=== PATIENT | female | born 1940 | race Caucasian/White ===

== ENCOUNTER 2016-07-22 14:16 | Inpatient (IN) | payer MEDICARE, OTHER ==
[~2016-07-22] VITALS: Ht 172.7 cm; Wt 87.2 kg
[2016-07-22] VITALS (17 sets, daily range): BP systolic 123–204; BP diastolic 70–120
--- NOTE | ~2016-07-22 | PR ---
[place], [place] PROGRESS NOTE NAME: ANDREAS COATES UNIT #: [id number] ROOM: 510 DOCTOR: TATIANA SAGASTUMEMATTHEW BIRTHDATE: [birth year] DOS: 07/25/2016 CARDIOLOGY PROGRESS NOTE SUBJECTIVE: The patient was seen at her bedside today 07/25/2016 for followup of a falling episode. She does have a history of paroxysmal atrial fibrillation and possible transient ischemic attacks. There was a concern that her falling episode prior to this admission might have been due to a TIA. The patient did have an MRI this morning, which did not show any acute ischemic events. She does have chronic microvascular changes. PHYSICAL EXAMINATION: VITAL SIGNS: Her pulse is 63 and regular, blood pressure is 137/67. She is afebrile. She weighs 87.2 kg and has a body mass index of 29.2. NECK: Supple. She has no jugular distention. Carotids are full. LUNGS: Respirations are unlabored. Her chest is clear. HEART: Has a regular rhythm with an S4 gallop. ABDOMEN: Benign. EXTREMITIES: Showed no edema on the left. Her right ankle was in a brace. LABORATORY STUDIES: Sodium is 142, potassium 3.8, BUN 16, creatinine 0.72, GFR is greater than 60. Her PTH was elevated at 92.2 with a calcium of 10.7. IMPRESSION: 1. Transient weakness of her right foot. This probably was related to her other medical problems and probably does not represent a transient ischemic attack. She could have had transient hypotension from her atrial fibrillation or a fall in her blood pressure related to an infection. 2. History of paroxysmal atrial fibrillation. The patient is currently in sinus rhythm. 3. Diabetes mellitus. 4. Hypertension. 5. Hyperlipidemia. 6. Status post abdominal aortic aneurysm repair. 7. Elevated calcium with elevated PTH level. The patient may have primary hyperparathyroidism. PLAN: We will review the results of her echocardiogram once it is available. If that looks okay, then no other cardiac workup is planned. I would like to keep her on a low dose of beta gillian. Further evaluation of her hyperparathyroidism will be per her primary physicians. I thank the hospitalist group for asking our advice regarding her care. [place], [place] PROGRESS NOTE NAME: ANDREAS COATES UNIT #: [id number] ROOM: 510 DOCTOR: MATTHEW SIMPSON MD BIRTHDATE: [birth year] MATTHEW SIMPSON MD CM:PNTRANS [phone] MATTHEW SIMPSON MD 07/26/16 0142 interface
--- NOTE | ~2016-07-22 | CON ---
[place], [place] REPORT OF CONSULTATION NAME: ANDREAS COATES UNIT #: [id number] ROOM: 510 DOCTOR: MATTHEW SIMPSON MD BIRTHDATE: [birth year] DOS: 07/24/2016 REASON FOR CONSULTATION: Transient right-sided weakness, history of atrial fibrillation, possible TIA. HISTORY OF PRESENT ILLNESS: The patient is a 76-year-old woman who is known to have paroxysmal atrial fibrillation. She was first documented to have atrial fibrillation in 04/2014. She was placed on Xarelto at that time for stroke prophylaxis. She had had a prior history of transient ischemic attack, but no residual. She does admit that because of insurance concerns for a few months, she was taking the Xarelto every few days rather than daily. She states that around June, she got insurance coverage for her prescriptions and began taking the pill daily, so she has been taking it daily for about 3 or 4 weeks. On the day of admission, 07/22/2016, she was feeling somewhat weak when she first got up, but then felt better. She took her trash out. She states that she has to walk down one step to a porch and then down three steps to the ground level to bring the trash out. She had no trouble with that. On the way back, she was able to walk up to three steps without difficulty, but when she came to the step into her house, she could not raise her right leg. She lost balance and fell easing herself to the ground. She did not injure herself to her knowledge. She crawled to her neighbor's home and was assisted back into a chair. The emergency medical services were called. By the time they arrived, she stated that she was feeling normally again, but just generally tired. She has not had any focal weakness since her admission. A CT scan of the head since admission was unremarkable. CT of the cervical spine showed no acute fracture or malalignment. CT of the abdomen and pelvis was also unremarkable. On arrival to the Emergency Room, she was in atrial fibrillation with a rapid ventricular response, but she did convert to sinus rhythm quickly and has remained in sinus rhythm since then. PAST MEDICAL HISTORY: Includes: 1. Newly documented atrial fibrillation on 05/06/2014. 2. Non-insulin dependent diabetes mellitus. 3. Remote history of transient ischemic attack. 4. Status post repair of abdominal aortic aneurysm. 5. Hypertension. 6. Hyperlipidemia. 7. Status post cholecystectomy. 8. Status post heel spur repair. MEDICATIONS: Prior to admission, fish oil 1000 mg daily, metformin 1000 mg b.i.d., Univasc 15 mg daily, rivaroxaban 20 mg daily, vitamin D 2000 units daily and rosuvastatin 40 mg daily. ALLERGIES: The patient has no known drug allergies. [place], [place] REPORT OF CONSULTATION NAME: ANDREAS COATES UNIT #: [id number] ROOM: [facility] DOCTOR: MATTHEW SIMPSON MD BIRTHDATE: [birth year] FAMILY HISTORY: Positive for strokes in her family. Her father of a stroke and complications of the stroke at age 59. Her mother had strokes at age 60 and 61. REVIEW OF SYSTEMS: The patient denies diplopia or loss of vision. She does walk with a walker, but denies any focal weakness until yesterday morning. She denies fevers, chills, sweats or recent weight change. She denies orthopnea or PND. She denies any chest pain and she cannot tell when her heart is out of rhythm. She denies nausea or vomiting. She denies hemoptysis or hematemesis. She denies any anorexia or recent weight change. She denies change in bowel or bladder habits and denies blood in her stools or urine. She denies any heat or cold intolerance. She denies polydipsia or polyuria. She denies any left ankle swelling. Her right ankle was injured years ago and she did have all right ankle open reduction and internal fixation. The right ankle does her now and she walks with a brace. SOCIAL HISTORY: The patient lives alone. She does not smoke or consume alcohol. She was a smoker in the distant past. PHYSICAL EXAMINATION: GENERAL: The patient is a pleasant elderly white female who is awake, alert and oriented. VITAL SIGNS: Pulse is 63 and regular, blood pressure is 132/70. She is afebrile. She weighs 87.2 kg and has a body mass index of 29.2. HEENT: Normocephalic and atraumatic. Extraocular muscles are intact. Sclerae are clear. Pupils are equal, round and reactive to light. The oral mucosa is moist. Tongue is midline. NECK: Supple. She has no jugular distention. Carotids are full and I heard no bruits. She had no neck or supraclavicular masses. No thyromegaly. Respirations were unlabored. CHEST: Clear to auscultation and percussion. She had no presacral edema or chest wall tenderness. CARDIOVASCULAR: Her heart had a regular rhythm. She had a fourth heart sound, but no third heart sound or murmur. The PMI was not displaced. She had no precordial heave, lift or thrill. ABDOMEN: Soft and normally active without masses, organomegaly or bruits. EXTREMITIES: Showed no edema on the left. Her right ankle was slightly swollen and warm. Pedal pulses were diminished in the feet bilaterally. SKIN: There were no obvious skin rashes. IMPRESSION AND RECOMMENDATIONS: 1. Transient weakness of the right foot. It is not clear whether this could have represented a transient hypotension from her paroxysmal atrial fibrillation or could represent a transient ischemic attack from the atrial fibrillation. Unfortunately, that would indicate a failure of the rivaroxaban can to prevent strokes in her situation. 2. History of paroxysmal atrial fibrillation. 3. History of diabetes mellitus. 4. History of hypertension. [place], [place] REPORT OF CONSULTATION NAME: ANDREAS COATES UNIT #: [id number] ROOM: 510 DOCTOR: MATTHEW SIMPSON MD BIRTHDATE: [birth year] 5. History of hyperlipidemia. 6. History of abdominal aortic aneurysm repair. PLAN: For now, we will continue her current medications, but I will ask her to increase her metoprolol to help prevent tachycardia. We will continue to monitor her to make sure that she is not having prolonged pauses when she converts from sinus rhythm to atrial fibrillation. I will be asking for an MRI of the brain to see if there is evidence for small brain injuries such as would be seen with cerebral embolic events. I understand she has had an echo and I will review that to look for cardiac sources of emboli. I thank the hospitalist group for asking our advice regarding her care. MATTHEW SIMPSON MD CM:CONSTR:REPORT OF CONSULTATION 1756 07/24/16 1626 interface
--- NOTE | ~2016-07-22 | PR ---
[place], [place] PROGRESS NOTE NAME: ANDREAS COATES [facility] #: [id number] UNIT #: [id number] ROOM: 510 DOCTOR: MATTHEW SIMPSON MD BIRTHDATE: [birth year] DOS: 07/24/2016 SUBJECTIVE: The patient was seen at her bedside today 07/24/2016 for followup of her paroxysmal atrial fibrillation and possible transient ischemic attack. She tells me that she has had no further symptoms since her admission. I reviewed her monitor, she did convert from atrial fibrillation with a controlled ventricular response to sinus rhythm shortly after admission. There was no prolonged pause seen. She has not had any further episodes of atrial fibrillation since then. I did ask for an MRI of her brain and that is still pending. At this point, I am not clear if the event that she had truly was a transient ischemic attack or related to an arrhythmia. PHYSICAL EXAMINATION: VITAL SIGNS: On exam today, she is awake, alert and oriented. VITAL SIGNS: Pulse is 54 and regular, blood pressure is 117/68. She is afebrile and weighs 87.2 kg. NECK: Supple. She has no jugular distention. Carotids are full. She has no bruits. LUNGS: Respirations are unlabored. Her chest is clear to auscultation and percussion. She has no presacral edema or chest wall tenderness. HEART: Has a regular rhythm. There is a fourth heart sound present, but no third heart sound or murmur. ABDOMEN: Soft and normoactive. EXTREMITIES: Showed no edema on the left. Her right ankle is slightly swollen. LABORATORY DATA: Hemoglobin is 11.6, white count 5000, platelet count 260,000. Sodium 140, potassium 3.7, BUN 16, creatinine 0.68, glucose 146. Calcium is slightly high at 11 and has been high since her admission. IMPRESSION: 1. Transient weakness of her right foot. It is not clear whether this represented a transient hypotensive episode from her arrhythmia or if it could represent a transient ischemic attack from a cardioembolic phenomenon. 2. History of paroxysmal atrial fibrillation. 3. Diabetes mellitus. 4. Hypertension. 5. Hyperlipidemia. 6. Abdominal aortic aneurysm repair. PLAN: We will continue to monitor the patient. She will have an MRI of her brain in the morning. An echocardiogram will also be performed. Further recommendations will depend upon those results. I thank the hospitalist group for asking our advice regarding her care. [place], [place] PROGRESS NOTE NAME: ANDREAS COATES UNIT #: [id number] ROOM: 510 DOCTOR: TATIANA SAGASTUME,MATTHEW BIRTHDATE: [birth year] MATTHEW SIMPSON MD CM:PNTRANS [id number] MATTHEW SIMPSON MD 07/25/16 1301 interface
[~2016-07-22 14:16] MED LIST: ASPIRIN ADULT L81 M1 PO; AVANDAMET PO; AVELOX400 MG PO; CARDI-OMEGA1000 MG PO; CLOPIDOGREL BIS75 MG PO; CRESTOR40 MG; FLOMAX0.4 MG PO; GLIMEPIRIDE2 MG PO; GLUCOPHAGE1000 MG PO; Lopressor25 MG PO; METFORMIN500 MG PO; MORPHINE SULF2 MG/M1 IV; MUCINEX600 MG PO; PLAVIX75 MG PO; SMZ-TMP 400 MG-1 TAB PO; UNIVASC15 MG PO; VITAMIN D2000 IU PO; XARE20MG PO; XARELTO10 MG PO; [UNRECOGNIZED DRUG - OTHER]; [UNRECOGNIZED DRUG - OTHER] PO
[2016-07-22 15:07] LABS: BASO % 0.5 % (0.0-1.0); EOS # 0.1 10*3/uL (0.0-0.4); EOS % 1.3 % (1.0-4.0); HEMATOCRIT 39.2 % (37.0-47.0); HEMOGLOBIN 12.3 g/dl (12.0-16.0); LYMPH % 12.7 % (27.0-41.0); MEAN CELL VOLUME 95.8 fl (81.0-99.0); MEAN CORPUSCULAR HGB 30.1 pg (27.0-31.0); MEAN CORPUSCULAR HGB CONC 31.4 g/dl (33.0-37.0); MEAN PLATELET VOLUME 10.1 fl (9.6-12.3); MONO # 0.6 10*3/uL (0.1-1.0); MONO % 8.3 % (3.0-9.0); NEUT # 5.8 10*3/uL (2.3-7.9); NEUT % 76.9 % (47.0-73.0); PLATELET COUNT AUTOMATED 279 10*3/uL (130-400); RED BLOOD COUNT 4.09 10*6/uL (4.10-5.10); RED CELL DISTRI WIDTH 15.5 % (0-14.5); WHITE BLOOD COUNT 7.5 10*3/uL (4.8-10.8)
[2016-07-22 15:29] LABS: ALBUMIN 3.7 gm/dl (3.1-4.5); ALKALINE PHOSPHATASE 136 U/L (45-117); BILIRUBIN, TOTAL 0.5 mg/dl (0.2-1.0); BUN 17 mg/dl (7-24); CARBON DIOXIDE 27 mmol/L (21-32); CHLORIDE 104 mmol/L (98-107); EST GLOM FILT AFRICAN AMERICAN > 60 ml/min; GLUCOSE 138 mg/dL (65-99); POTASSIUM 4.2 mmol/L (3.5-5.1); SGOT/AST 20 IU/L (3-35); SGPT/ALT 20 U/L (12-78); SODIUM 139 mmol/L (136-145); TOTAL PROTEIN 8.9 gm/dL (6.4-8.2)
[2016-07-22 15:36] LABS: BILIRUBIN NEGATIVE (NEGATIVE); BLOOD TRACE-INTACT (NEGATIVE); CLARITY CLEAR (CLEAR); COLOR YELLOW (YELLOW); GLUCOSE NEGATIVE (NEGATIVE); KETONE NEGATIVE (NEGATIVE); LEUKO ESTERASE NEGATIVE (NEGATIVE); NITRITE NEGATIVE (NEGATIVE); PROTEIN 1+ (NEGATIVE); UROBILINOGEN 0.2 E.U./dl (0.2-1.0)
[2016-07-22 16:07] LABS: BACTERIA 2+; RBC 0-2 rbc/hpf (0-2)
[2016-07-22 16:08] LABS: URINE REFLEX COMMENT YES (NO)
[2016-07-23] VITALS: BP 128/65
[2016-07-23 00:53] LABS: TROPONIN I 0.028 ng/ml (<0.5)
[2016-07-23 00:57] LABS: CKMB 5.8 ng/ml (0.5-3.6)
[2016-07-23 06:20] LABS: BASO # 0.1 10*3/uL (0.0-0.1); BASO % 0.9 % (0.0-1.0); EOS # 0.2 10*3/uL (0.0-0.4); EOS % 2.6 % (1.0-4.0); HEMATOCRIT 39.8 % (37.0-47.0); HEMOGLOBIN 12.7 g/dl (12.0-16.0); LYMPH # 1.2 10*3/uL (1.3-4.4); LYMPH % 20.7 % (27.0-41.0); MEAN CELL VOLUME 94.5 fl (81.0-99.0); MEAN CORPUSCULAR HGB 30.2 pg (27.0-31.0); MEAN CORPUSCULAR HGB CONC 31.9 g/dl (33.0-37.0); MEAN PLATELET VOLUME 10.1 fl (9.6-12.3); MONO # 0.6 10*3/uL (0.1-1.0); MONO % 9.5 % (3.0-9.0); NEUT # 3.8 10*3/uL (2.3-7.9); PLATELET COUNT AUTOMATED 292 10*3/uL (130-400); RED BLOOD COUNT 4.21 10*6/uL (4.10-5.10); RED CELL DISTRI WIDTH 15.6 % (0-14.5); WHITE BLOOD COUNT 5.8 10*3/uL (4.8-10.8)
[2016-07-23 06:29] LABS: TROPONIN I 0.017 ng/ml (<0.5)
[2016-07-23 06:31] LABS: CKMB 5.4 ng/ml (0.5-3.6)
[2016-07-23 06:33] LABS: HEMOGLOBIN A1c 7.3 % (4.8-5.6)
[2016-07-23 06:45] LABS: PROTHROMBIN TIME 10.3 SECONDS (9.0-12.4)
[2016-07-23 06:56] LABS: ALBUMIN 3.4 gm/dl (3.1-4.5); ALKALINE PHOSPHATASE 127 U/L (45-117); BILIRUBIN, TOTAL 0.5 mg/dl (0.2-1.0); BUN 15 mg/dl (7-24); CARBON DIOXIDE 27 mmol/L (21-32); CHLORIDE 107 mmol/L (98-107); CHOLESTEROL 139 mg/dL (<200); EST GLOM FILT AFRICAN AMERICAN > 60 ml/min; GLUCOSE 134 mg/dL (65-99); HDL CHOLESTEROL 46 mg/dl (40-60); LDL CHOLESTEROL 72 mg/dL (9-159); PHOSPHOROUS 2.1 mg/dL (2.5-4.9); POTASSIUM 3.7 mmol/L (3.5-5.1); SGOT/AST 18 IU/L (3-35); SGPT/ALT 19 U/L (12-78); SODIUM 142 mmol/L (136-145); TOTAL PROTEIN 8.6 gm/dL (6.4-8.2); TRIGLYCERIDES 103 mg/dl (<150); VLDL CHOLESTEROL 21 mg/dL (6-40)
[2016-07-23 07:19] LABS: VITAMIN D, 25-HYDROXY 24.3 ng/mL (30-100)
[2016-07-23 07:20] LABS: FOLIC ACID 11.56 ng/mL (>5.38)
[2016-07-23 08:00] VITALS: BP 144/70
[2016-07-23 12:00] VITALS: BP 132/60
[2016-07-23 12:13] LABS: CPK 134 U/L (26-192)
[2016-07-23 12:23] LABS: TROPONIN I < 0.015 ng/ml (<0.5)
[2016-07-23 16:00] VITALS: BP 132/70
[2016-07-23 20:00] VITALS: BP 137/74
[2016-07-24] VITALS: BP 138/74
[2016-07-24 06:27] LABS: BASO # 0.1 10*3/uL (0.0-0.1); EOS # 0.3 10*3/uL (0.0-0.4); EOS % 5.4 % (1.0-4.0); HEMATOCRIT 36.4 % (37.0-47.0); HEMOGLOBIN 11.6 g/dl (12.0-16.0); LYMPH # 0.9 10*3/uL (1.3-4.4); LYMPH % 18.1 % (27.0-41.0); MEAN CELL VOLUME 94.8 fl (81.0-99.0); MEAN CORPUSCULAR HGB 30.2 pg (27.0-31.0); MEAN CORPUSCULAR HGB CONC 31.9 g/dl (33.0-37.0); MONO # 0.5 10*3/uL (0.1-1.0); MONO % 10.5 % (3.0-9.0); NEUT # 3.3 10*3/uL (2.3-7.9); NEUT % 64.6 % (47.0-73.0); PLATELET COUNT AUTOMATED 260 10*3/uL (130-400); RED BLOOD COUNT 3.84 10*6/uL (4.10-5.10); RED CELL DISTRI WIDTH 15.6 % (0-14.5)
[2016-07-24 07:10] LABS: BUN 16 mg/dl (7-24); CARBON DIOXIDE 26 mmol/L (21-32); CHLORIDE 105 mmol/L (98-107); EST GLOM FILT AFRICAN AMERICAN > 60 ml/min; GLUCOSE 146 mg/dL (65-99); MAGNESIUM 2.1 mg/dL (1.5-2.1); PHOSPHOROUS 2.7 mg/dL (2.5-4.9); POTASSIUM 3.7 mmol/L (3.5-5.1); SODIUM 140 mmol/L (136-145)
[2016-07-24 08:00] VITALS: BP 136/51
[2016-07-24 12:00] VITALS: BP 124/66
[2016-07-24 16:00] VITALS: BP 117/68
[2016-07-24 20:00] VITALS: BP 113/60
[2016-07-25] VITALS: BP 126/61
[2016-07-25 06:39] LABS: BUN 16 mg/dl (7-24); CARBON DIOXIDE 27 mmol/L (21-32); CHLORIDE 106 mmol/L (98-107); EST GLOM FILT AFRICAN AMERICAN > 60 ml/min; GLUCOSE 139 mg/dL (65-99); POTASSIUM 3.8 mmol/L (3.5-5.1); SODIUM 142 mmol/L (136-145)
[2016-07-25 08:00] VITALS: BP 137/67
[2016-07-25 12:00] VITALS: BP 156/72
[2016-07-25 16:00] VITALS: BP 115/53
[2016-07-25] MEDS ORDERED: LOPRESSOR25 MG PO (19:39)
[2016-07-25 20:00] VITALS: BP 115/55
[2016-07-26] VITALS: BP 149/73
[2016-07-26 08:00] VITALS: BP 134/70
[2016-07-26] MEDS ORDERED: LOPRESSOR25 MG PO (10:48)
[2016-07-26 12:00] VITALS: BP 145/77
== END 2016-07-26 14:55 | disposition home health service (06) | DRG 309 ==
LOC: ED 14:16 → 5E 17:51 → EDHOLD 17:51 → 5E 18:33
PROVIDERS: Internal Medicine; Nurse Practitioner Family
DX: I48.0 Paroxysmal atrial fibrillation (principal); N39.0 Urinary tract infection, site not specified; I95.9 Hypotension, unspecified; E11.9 Type 2 diabetes mellitus without complications; I10 Essential (primary) hypertension; R74.8 Abnormal levels of other serum enzymes; R29.6 Repeated falls; E21.0 Primary hyperparathyroidism; E78.5 Hyperlipidemia, unspecified; Z96.1 Presence of intraocular lens; Z68.29 Body mass index [BMI] 29.0-29.9, adult; Z86.73 Personal history of transient ischemic attack (TIA), and cerebral infarction without residual deficits; Z90.49 Acquired absence of other specified parts of digestive tract; Z98.49 Cataract extraction status, unspecified eye; Z98.890 Other specified postprocedural states; Z87.891 Personal history of nicotine dependence; Z82.3 Family history of stroke; Z82.49 Family history of ischemic heart disease and other diseases of the circulatory system; Z83.3 Family history of diabetes mellitus; Z79.899 Other long term (current) drug therapy; Z87.440 Personal history of urinary (tract) infections; Z87.442 Personal history of urinary calculi

== ENCOUNTER 2016-09-15 12:07 | Inpatient (IN) | payer MEDICARE, OTHER ==
[~2016-09-15] VITALS: Ht 170.1 cm; Wt 79.4 kg
[~2016-09-15 12:07] MED LIST changes: +LOPRESSOR25 MG PO
[2016-09-15] MEDS ORDERED: OXYBUTYNIN CHLOR5 MG PO (12:20)
[2016-09-15] MEDS ORDERED: HYDROCODONE BIT1 T11 PO (12:20)
[2016-09-15] MEDS ORDERED: Lopressor25 MG PO (12:21)
[2016-09-15] MEDS ORDERED: METFORMIN1000 MG PO ×2 (12:23→16:55)
[2016-09-15 13:08] LABS: BASO % 0.4 % (0.0-1.0); EOS # 0.1 10*3/uL (0.0-0.4); EOS % 0.6 % (1.0-4.0); HEMATOCRIT 36.3 % (37.0-47.0); HEMOGLOBIN 11.7 g/dl (12.0-16.0); LYMPH # 0.7 10*3/uL (1.3-4.4); LYMPH % 8.8 % (27.0-41.0); MEAN CELL VOLUME 95.3 fl (81.0-99.0); MEAN CORPUSCULAR HGB 30.7 pg (27.0-31.0); MEAN CORPUSCULAR HGB CONC 32.2 g/dl (33.0-37.0); MEAN PLATELET VOLUME 10.3 fl (9.6-12.3); MONO # 0.6 10*3/uL (0.1-1.0); MONO % 7.3 % (3.0-9.0); NEUT # 6.5 10*3/uL (2.3-7.9); NEUT % 82.6 % (47.0-73.0); PLATELET COUNT AUTOMATED 267 10*3/uL (130-400); RED BLOOD COUNT 3.81 10*6/uL (4.10-5.10); RED CELL DISTRI WIDTH 14.1 % (0-14.5); WHITE BLOOD COUNT 7.8 10*3/uL (4.8-10.8)
[2016-09-15 13:26] LABS: ALBUMIN 3.2 gm/dl (3.1-4.5); ALKALINE PHOSPHATASE 111 U/L (45-117); BUN 12 mg/dl (7-24); CARBON DIOXIDE 26 mmol/L (21-32); CHLORIDE 104 mmol/L (98-107); CPK 134 U/L (26-192); EST GLOM FILT AFRICAN AMERICAN > 60 ml/min; GLUCOSE 142 mg/dL (65-99); MAGNESIUM 1.9 mg/dL (1.5-2.1); POTASSIUM 3.6 mmol/L (3.5-5.1); SGOT/AST 18 IU/L (3-35); SGPT/ALT 15 U/L (12-78); SODIUM 141 mmol/L (136-145); TOTAL PROTEIN 7.8 gm/dL (6.4-8.2)
[2016-09-15 13:30] LABS: BILIRUBIN, TOTAL 0.3 mg/dl (0.2-1.0)
[2016-09-15 13:35] LABS: TROPONIN I < 0.015 ng/ml (<0.045)
[2016-09-15 13:37] LABS: CKMB 5.1 ng/ml (0.5-3.6)
[2016-09-15 13:39] LABS: BILIRUBIN NEGATIVE (NEGATIVE); BLOOD 2+ (NEGATIVE); CLARITY CLOUDY (CLEAR); COLOR YELLOW (YELLOW); GLUCOSE NEGATIVE (NEGATIVE); KETONE NEGATIVE (NEGATIVE); LEUKO ESTERASE 3+ (NEGATIVE); NITRITE POSITIVE (NEGATIVE); PROTEIN 1+ (NEGATIVE); UROBILINOGEN 0.2 E.U./dl (0.2-1.0)
[2016-09-15 13:55] LABS: BACTERIA 4+; URINE REFLEX COMMENT YES (NO); WBC TNTC wbc/hpf (0-5)
[2016-09-15] MEDS ORDERED: METFORMIN500 MG PO (16:56)
[2016-09-16 05:52] LABS: BASO % 0.5 % (0.0-1.0); EOS # 0.2 10*3/uL (0.0-0.4); EOS % 3.2 % (1.0-4.0); HEMATOCRIT 34.3 % (37.0-47.0); HEMOGLOBIN 10.8 g/dl (12.0-16.0); LYMPH % 16.6 % (27.0-41.0); MEAN CELL VOLUME 96.9 fl (81.0-99.0); MEAN CORPUSCULAR HGB 30.5 pg (27.0-31.0); MEAN CORPUSCULAR HGB CONC 31.5 g/dl (33.0-37.0); MEAN PLATELET VOLUME 10.7 fl (9.6-12.3); MONO # 0.6 10*3/uL (0.1-1.0); MONO % 10.7 % (3.0-9.0); NEUT # 4.1 10*3/uL (2.3-7.9); NEUT % 68.5 % (47.0-73.0); PLATELET COUNT AUTOMATED 236 10*3/uL (130-400); RED BLOOD COUNT 3.54 10*6/uL (4.10-5.10)
[2016-09-16 06:15] LABS: ALBUMIN 2.8 gm/dl (3.1-4.5); ALKALINE PHOSPHATASE 97 U/L (45-117); BILIRUBIN, TOTAL 0.2 mg/dl (0.2-1.0); BUN 11 mg/dl (7-24); CARBON DIOXIDE 25 mmol/L (21-32); CHLORIDE 108 mmol/L (98-107); EST GLOM FILT AFRICAN AMERICAN > 60 ml/min; GLUCOSE 92 mg/dL (65-99); MAGNESIUM 1.7 mg/dL (1.5-2.1); PHOSPHOROUS 1.9 mg/dL (2.5-4.9); POTASSIUM 3.4 mmol/L (3.5-5.1); SGOT/AST 19 IU/L (3-35); SGPT/ALT 13 U/L (12-78); SODIUM 145 mmol/L (136-145); TOTAL PROTEIN 6.9 gm/dL (6.4-8.2)
[2016-09-16 06:17] LABS: INTERNATIONAL NORM RATIO 1.1 (2.0-3.5); PROTHROMBIN TIME 11.6 SECONDS (9.0-12.4)
[2016-09-16 06:22] LABS: THYROID STIM HORMONE (HS) 0.966 uIU/ml (0.358-4.75)
[2016-09-16 08:13] LABS: RHEUMATOID ARTHRITIS FACTOR 166.6 IU/mL (0.0-13.9)
[2016-09-18] MEDS ORDERED: HYDROCODONE BIT1 T11 PO (14:00)
[2016-09-18] MEDS ORDERED: DOXYCYCLINE100 MG PO (14:00)
[2016-09-18] MEDS ORDERED: ACETAMINOPHEN-H1 TA2 PO (14:01)
[2016-09-18] MEDS ORDERED: PREDNISONE50 MG PO (14:11)
[2016-09-20 13:06] LABS: ANTI-RNP ANTIBODIES <0.2 AI (0.0-0.9); ANTI-SMITH ANTIBODIES 0.5 AI (0.0-0.9)
== END 2016-09-18 15:20 | disposition other institution (70) | DRG 546 ==
LOC: ED 12:07 → EDHOLD 14:22 → 5E 14:22
PROVIDERS: Family Medicine Adult Medicine; Internal Medicine; Student in an Organized Health Care Education/Training Program
DX: M32.9 Systemic lupus erythematosus, unspecified (principal); N39.0 Urinary tract infection, site not specified; I48.91 Unspecified atrial fibrillation; E11.9 Type 2 diabetes mellitus without complications; E86.0 Dehydration; E78.5 Hyperlipidemia, unspecified; I10 Essential (primary) hypertension; E21.0 Primary hyperparathyroidism; M25.50 Pain in unspecified joint; Z79.01 Long term (current) use of anticoagulants; Z79.899 Other long term (current) drug therapy; Z86.73 Personal history of transient ischemic attack (TIA), and cerebral infarction without residual deficits; Z90.49 Acquired absence of other specified parts of digestive tract; Z87.81 Personal history of (healed) traumatic fracture; Z87.891 Personal history of nicotine dependence; Z82.3 Family history of stroke; Z82.49 Family history of ischemic heart disease and other diseases of the circulatory system; Z80.8 Family history of malignant neoplasm of other organs or systems

== ENCOUNTER 2016-12-12 16:45 | Emergency (ER) | payer MEDICARE, OTHER ==
[~2016-12-12] VITALS: Ht 170.1 cm; Wt 84.8 kg
[~2016-12-12 16:45] MED LIST changes: +ACETAMINOPHEN-H1 TA2 PO; +DOXYCYCLINE100 MG PO; +HYDROCODONE BIT1 T11 PO; +METFORMIN1000 MG PO; +OXYBUTYNIN CHLOR5 MG PO; +PREDNISONE50 MG PO
[2016-12-12] MEDS ORDERED: METFORMIN HCL1000 MG PO (16:59)
[2016-12-12] MEDS ORDERED: XARE20MG PO (16:59)
[2016-12-12] MEDS ORDERED: POTASSIUM PHOSPH1 GM MC (17:00)
[2016-12-12] MEDS ORDERED: PREDNISONE10 M1 PO (17:01)
[2016-12-12] MEDS ORDERED: VITAMIN D31000 IU PO (17:01)
[2016-12-12] MEDS ORDERED: CRESTOR40 M1 PO (17:02)
[2016-12-12] MEDS ORDERED: OXYBUTYNIN5 MG PO (17:02)
[2016-12-12] MEDS ORDERED: FISH OIL500 M2 PO (17:02)
[2016-12-12] MEDS ORDERED: TOPROL XL50 M1 PO (17:03)
[2016-12-12] MEDS ORDERED: HYDROCODON-ACE1 EACH PO (17:03)
[2016-12-12 17:26] LABS: HEMATOCRIT 34.1 % (37.0-47.0); HEMOGLOBIN 10.8 g/dl (12.0-16.0); MEAN CELL VOLUME 98.8 fl (81.0-99.0); MEAN CORPUSCULAR HGB 31.3 pg (27.0-31.0); MEAN CORPUSCULAR HGB CONC 31.7 g/dl (33.0-37.0); MEAN PLATELET VOLUME 10.3 fl (9.6-12.3); PLATELET COUNT AUTOMATED 230 10*3/uL (130-400); RED BLOOD COUNT 3.45 10*6/uL (4.10-5.10); RED CELL DISTRI WIDTH 15.4 % (0-14.5); WHITE BLOOD COUNT 10.1 10*3/uL (4.8-10.8)
[2016-12-12 17:39] LABS: INTERNATIONAL NORM RATIO 1.4 (2.0-3.5); PROTHROMBIN TIME 14.7 SECONDS (9.0-12.4)
[2016-12-12 17:41] LABS: ALBUMIN 3.1 gm/dl (3.1-4.5); ALKALINE PHOSPHATASE 84 U/L (45-117); BILIRUBIN, TOTAL 0.4 mg/dl (0.2-1.0); BUN 19 mg/dl (7-24); CARBON DIOXIDE 27 mmol/L (21-32); CHLORIDE 108 mmol/L (98-107); EST GLOM FILT AFRICAN AMERICAN > 60 ml/min; GLUCOSE 180 mg/dL (65-99); POTASSIUM 3.9 mmol/L (3.5-5.1); SGOT/AST 16 IU/L (3-35); SGPT/ALT 11 U/L (12-78); SODIUM 143 mmol/L (136-145); TOTAL PROTEIN 7.3 gm/dL (6.4-8.2)
[2016-12-12 17:45] LABS: EOSINOPHIL # 0.1 10*3/uL (0-0.4); EOSINOPHILS 1 % (1-4); LYMPHOCYTE # 0.7 10*3/uL (1.3-4.4); MONOCYTE # 0.3 10*3/uL (0.1-1.0); NEUTROPHILS 89 % (47-73); PLATELET SUFFICIENCY NORMAL (NORMAL); TOTAL CELLS COUNTED 100 #CELLS
[2016-12-12 18:20] VITALS: BP 105/55
== END 2016-12-12 19:05 | disposition home or self-care (01) ==
LOC: ED 16:45
PROVIDERS: Nurse Practitioner Family
DX: S16.1XXA Strain of muscle, fascia and tendon at neck level, initial encounter (principal); E78.5 Hyperlipidemia, unspecified; I10 Essential (primary) hypertension; I48.91 Unspecified atrial fibrillation; Z90.49 Acquired absence of other specified parts of digestive tract; I71.4 Abdominal aortic aneurysm, without rupture; Z87.891 Personal history of nicotine dependence; W18.30XA Fall on same level, unspecified, initial encounter; Y93.01 Activity, walking, marching and hiking; Y92.009 Unspecified place in unspecified non-institutional (private) residence as the place of occurrence of the external cause; Y99.9 Unspecified external cause status

== ENCOUNTER 2016-12-20 15:00 | Inpatient (IN) | payer MEDICARE, OTHER ==
[~2016-12-20] VITALS: Ht 170.2 cm; Wt 84.4 kg
[2016-12-20 15:00] VITALS: BP 143/70
[~2016-12-20 15:00] MED LIST changes: +CRESTOR40 M1 PO; +FISH OIL500 M2 PO; +HYDROCODON-ACE1 EACH PO; +METFORMIN HCL1000 MG PO; +OXYBUTYNIN5 MG PO; +POTASSIUM PHOSPH1 GM MC; +PREDNISONE10 M1 PO; +TOPROL XL50 M1 PO; +VITAMIN D31000 IU PO
[2016-12-20 15:55] LABS: HEMATOCRIT 44.4 % (37.0-47.0); HEMOGLOBIN 14.2 g/dl (12.0-16.0); MEAN CELL VOLUME 97.2 fl (81.0-99.0); MEAN CORPUSCULAR HGB 31.1 pg (27.0-31.0); MEAN PLATELET VOLUME 9.9 fl (9.6-12.3); PLATELET COUNT AUTOMATED 318 10*3/uL (130-400); RED BLOOD COUNT 4.57 10*6/uL (4.10-5.10); RED CELL DISTRI WIDTH 14.8 % (0-14.5); WHITE BLOOD COUNT 19.7 10*3/uL (4.8-10.8)
[2016-12-20 16:00] VITALS: BP 146/70
[2016-12-20 16:05] LABS: INTERNATIONAL NORM RATIO 1.1 (2.0-3.5); PROTHROMBIN TIME 11.4 SECONDS (9.0-12.4)
[2016-12-20 16:16] LABS: ALBUMIN 3.3 gm/dl (3.1-4.5); ALKALINE PHOSPHATASE 111 U/L (45-117); BILIRUBIN, TOTAL 0.7 mg/dl (0.2-1.0); BUN 16 mg/dl (7-24); CARBON DIOXIDE 24 mmol/L (21-32); CHLORIDE 104 mmol/L (98-107); EST GLOM FILT AFRICAN AMERICAN > 60 ml/min; GLUCOSE 320 mg/dL (65-99); POTASSIUM 3.6 mmol/L (3.5-5.1); SGOT/AST 65 IU/L (3-35); SGPT/ALT 32 U/L (12-78); SODIUM 142 mmol/L (136-145); TOTAL PROTEIN 8.4 gm/dL (6.4-8.2)
[2016-12-20 16:18] LABS: LYMPHOCYTE # 0.4 10*3/uL (1.3-4.4); MONOCYTE # 0.8 10*3/uL (0.1-1.0); NEUTROPHIL # 18.5 10*3/uL (2.3-7.9); NEUTROPHILS 94 % (47-73); PLATELET SUFFICIENCY NORMAL (NORMAL); TOTAL CELLS COUNTED 100 #CELLS
[2016-12-20 16:23] LABS: CKMB 19.3 ng/ml (0.5-3.6); TROPONIN I 0.173 ng/ml (<0.045)
[2016-12-20 16:40] LABS: CPK 1383 U/L (26-192)
[2016-12-20 17:00] VITALS: BP 148/80
[2016-12-20 17:50] LABS: LA>2 REFLEX 2 HR DRAW NOW
[2016-12-20 18:15] VITALS: BP 148/86
[2016-12-20 19:41] VITALS: BP 162/81
[2016-12-20 20:00] VITALS: BP 144/96
[2016-12-20 21:47] LABS: BILIRUBIN NEGATIVE (NEGATIVE); BLOOD 3+ (NEGATIVE); CLARITY CLEAR (CLEAR); COLOR YELLOW (YELLOW); GLUCOSE 2+ (NEGATIVE); KETONE 1+ (NEGATIVE); LEUKO ESTERASE NEGATIVE (NEGATIVE); NITRITE POSITIVE (NEGATIVE); PH 5.5 (5.0-9.0); PROTEIN 2+ (NEGATIVE); SPECIFIC GRAVITY >= 1.030 (1.005-1.030)
[2016-12-20 22:34] LABS: BACTERIA 2+
[2016-12-20 22:35] LABS: URINE REFLEX COMMENT YES (NO)
[2016-12-21] VITALS: BP 137/72
[2016-12-21 06:08] LABS: ALBUMIN 2.6 gm/dl (3.1-4.5); ALKALINE PHOSPHATASE 86 U/L (45-117); BILIRUBIN, TOTAL 0.5 mg/dl (0.2-1.0); BUN 18 mg/dl (7-24); CARBON DIOXIDE 27 mmol/L (21-32); CHLORIDE 107 mmol/L (98-107); EST GLOM FILT AFRICAN AMERICAN > 60 ml/min; GLUCOSE 204 mg/dL (65-99); MAGNESIUM 1.9 mg/dL (1.5-2.1); PHOSPHOROUS 1.8 mg/dL (2.5-4.9); POTASSIUM 3.5 mmol/L (3.5-5.1); SGOT/AST 47 IU/L (3-35); SGPT/ALT 28 U/L (12-78); SODIUM 141 mmol/L (136-145); TOTAL PROTEIN 6.8 gm/dL (6.4-8.2)
[2016-12-21 06:14] LABS: BASO % 0.1 % (0.0-1.0); IG # 0.1 10*3/uL (0.0-0.1); LYMPH # 0.6 10*3/uL (1.3-4.4); LYMPH % 4.2 % (27.0-41.0); MEAN CELL VOLUME 97.7 fl (81.0-99.0); MEAN CORPUSCULAR HGB 30.8 pg (27.0-31.0); MEAN CORPUSCULAR HGB CONC 31.6 g/dl (33.0-37.0); MEAN PLATELET VOLUME 10.7 fl (9.6-12.3); MONO % 6.8 % (3.0-9.0); NEUT # 12.9 10*3/uL (2.3-7.9); NEUT % 88.4 % (47.0-73.0); PLATELET COUNT AUTOMATED 269 10*3/uL (130-400); RED BLOOD COUNT 3.89 10*6/uL (4.10-5.10); WHITE BLOOD COUNT 14.6 10*3/uL (4.8-10.8)
[2016-12-21 06:15] LABS: THYROID STIM HORMONE (HS) 0.143 uIU/ml (0.358-4.75)
[2016-12-21 08:00] VITALS: BP 150/65
[2016-12-21 12:00] VITALS: BP 150/89
[2016-12-21 16:00] VITALS: BP 129/85
[2016-12-21 20:00] VITALS: BP 106/66
[2016-12-22] VITALS: BP 125/80
[2016-12-22 06:09] LABS: BASO % 0.1 % (0.0-1.0); EOS % 0.3 % (1.0-4.0); HEMATOCRIT 36.6 % (37.0-47.0); HEMOGLOBIN 11.3 g/dl (12.0-16.0); IG # 0.1 10*3/uL (0.0-0.1); LYMPH # 1.2 10*3/uL (1.3-4.4); MEAN CELL VOLUME 100.5 fl (81.0-99.0); MEAN CORPUSCULAR HGB CONC 30.9 g/dl (33.0-37.0); MEAN PLATELET VOLUME 10.5 fl (9.6-12.3); MONO % 7.2 % (3.0-9.0); NEUT # 11.1 10*3/uL (2.3-7.9); NEUT % 82.7 % (47.0-73.0); PLATELET COUNT AUTOMATED 273 10*3/uL (130-400); RED BLOOD COUNT 3.64 10*6/uL (4.10-5.10); RED CELL DISTRI WIDTH 15.4 % (0-14.5); WHITE BLOOD COUNT 13.4 10*3/uL (4.8-10.8)
[2016-12-22 06:18] LABS: BUN 19 mg/dl (7-24); CARBON DIOXIDE 30 mmol/L (21-32); CHLORIDE 108 mmol/L (98-107); EST GLOM FILT AFRICAN AMERICAN > 60 ml/min; GLUCOSE 112 mg/dL (65-99); POTASSIUM 3.4 mmol/L (3.5-5.1); SODIUM 145 mmol/L (136-145)
[2016-12-22 08:00] VITALS: BP 131/70
[2016-12-22 12:00] VITALS: BP 124/74
[2016-12-22 16:00] VITALS: BP 138/67
[2016-12-22 20:00] VITALS: BP 143/98
[2016-12-23] VITALS: BP 152/81
[2016-12-23 06:02] LABS: BASO % 0.2 % (0.0-1.0); EOS # 0.1 10*3/uL (0.0-0.4); EOS % 0.9 % (1.0-4.0); HEMATOCRIT 35.1 % (37.0-47.0); HEMOGLOBIN 10.7 g/dl (12.0-16.0); IG # 0.1 10*3/uL (0.0-0.1); LYMPH # 1.3 10*3/uL (1.3-4.4); MEAN CELL VOLUME 100.3 fl (81.0-99.0); MEAN CORPUSCULAR HGB 30.6 pg (27.0-31.0); MEAN CORPUSCULAR HGB CONC 30.5 g/dl (33.0-37.0); MEAN PLATELET VOLUME 10.4 fl (9.6-12.3); MONO # 0.6 10*3/uL (0.1-1.0); MONO % 6.4 % (3.0-9.0); NEUT # 7.8 10*3/uL (2.3-7.9); PLATELET COUNT AUTOMATED 271 10*3/uL (130-400); RED CELL DISTRI WIDTH 15.1 % (0-14.5); WHITE BLOOD COUNT 9.9 10*3/uL (4.8-10.8)
[2016-12-23 06:26] LABS: BUN 16 mg/dl (7-24); CARBON DIOXIDE 30 mmol/L (21-32); CHLORIDE 110 mmol/L (98-107); EST GLOM FILT AFRICAN AMERICAN > 60 ml/min; GLUCOSE 106 mg/dL (65-99); POTASSIUM 3.4 mmol/L (3.5-5.1); SODIUM 147 mmol/L (136-145)
[2016-12-23 08:00] VITALS: BP 148/85
[2016-12-23 12:00] VITALS: BP 155/95
[2016-12-23 16:00] VITALS: BP 147/92
[2016-12-23 20:00] VITALS: BP 146/86
[2016-12-24] VITALS: BP 160/96
[2016-12-24 06:11] LABS: BASO % 0.3 % (0.0-1.0); EOS # 0.3 10*3/uL (0.0-0.4); EOS % 2.7 % (1.0-4.0); HEMATOCRIT 36.2 % (37.0-47.0); HEMOGLOBIN 11.7 g/dl (12.0-16.0); IG # 0.1 10*3/uL (0.0-0.1); LYMPH # 1.5 10*3/uL (1.3-4.4); LYMPH % 13.9 % (27.0-41.0); MEAN CORPUSCULAR HGB 30.7 pg (27.0-31.0); MEAN CORPUSCULAR HGB CONC 32.3 g/dl (33.0-37.0); MEAN PLATELET VOLUME 11.3 fl (9.6-12.3); MONO # 0.8 10*3/uL (0.1-1.0); MONO % 7.5 % (3.0-9.0); NEUT # 7.8 10*3/uL (2.3-7.9); NEUT % 74.8 % (47.0-73.0); PLATELET COUNT AUTOMATED 257 10*3/uL (130-400); RED BLOOD COUNT 3.81 10*6/uL (4.10-5.10); RED CELL DISTRI WIDTH 14.9 % (0-14.5); WHITE BLOOD COUNT 10.4 10*3/uL (4.8-10.8)
[2016-12-24 06:26] LABS: BUN 12 mg/dl (7-24); CARBON DIOXIDE 28 mmol/L (21-32); CHLORIDE 109 mmol/L (98-107); EST GLOM FILT AFRICAN AMERICAN > 60 ml/min; GLUCOSE 115 mg/dL (65-99); POTASSIUM 3.5 mmol/L (3.5-5.1); SODIUM 146 mmol/L (136-145)
[2016-12-24 08:00] VITALS: BP 190/80
[2016-12-24 11:43] VITALS: BP 146/90
[2016-12-24] MEDS ORDERED: ACETAMINOPHEN-H1 TA2 PO (11:52)
[2016-12-24] MEDS ORDERED: DOXYCYCLINE100 MG PO (11:53)
== END 2016-12-24 14:30 | disposition other institution (70) | DRG 871 ==
LOC: ED 15:00 → 5E 18:30 → EDHOLD 18:30 → 5E 18:48
PROVIDERS: Emergency Medicine; Hospitalist; Internal Medicine; Student in an Organized Health Care Education/Training Program
DX: A41.9 Sepsis, unspecified organism (principal); E43 Unspecified severe protein-calorie malnutrition; E87.0 Hyperosmolality and hypernatremia; I71.2 Thoracic aortic aneurysm, without rupture; S09.90XA Unspecified injury of head, initial encounter; I48.0 Paroxysmal atrial fibrillation; S22.43XA Multiple fractures of ribs, bilateral, initial encounter for closed fracture; N39.0 Urinary tract infection, site not specified; T79.6XXA Traumatic ischemia of muscle, initial encounter; Z66 Do not resuscitate; E21.0 Primary hyperparathyroidism; R32 Unspecified urinary incontinence; E11.9 Type 2 diabetes mellitus without complications; B96.20 Unspecified Escherichia coli [E. coli] as the cause of diseases classified elsewhere; I10 Essential (primary) hypertension; E78.5 Hyperlipidemia, unspecified; W18.39XA Other fall on same level, initial encounter; Z96.1 Presence of intraocular lens; M05.9 Rheumatoid arthritis with rheumatoid factor, unspecified; E87.6 Hypokalemia; Z68.29 Body mass index [BMI] 29.0-29.9, adult; Z86.73 Personal history of transient ischemic attack (TIA), and cerebral infarction without residual deficits; I25.2 Old myocardial infarction; Z90.49 Acquired absence of other specified parts of digestive tract; Z98.49 Cataract extraction status, unspecified eye; Z87.891 Personal history of nicotine dependence; Z82.49 Family history of ischemic heart disease and other diseases of the circulatory system; Z82.3 Family history of stroke; Z87.81 Personal history of (healed) traumatic fracture; Z79.84 Long term (current) use of oral hypoglycemic drugs; Z79.899 Other long term (current) drug therapy; Y93.89 Activity, other specified; Y92.89 Other specified places as the place of occurrence of the external cause; Y99.8 Other external cause status

== ENCOUNTER 2017-03-11 12:40 | Inpatient (IN) | payer MEDICARE, OTHER ==
[2017-03-11] VITALS (7 sets, daily range): BP systolic 94–163; BP diastolic 40–103
[~2017-03-11] VITALS: Ht 170.2 cm; Wt 79.8 kg
--- NOTE | ~2017-03-11 | EKG ---
[place], [place] ELECTROCARDIOGRAM REPORT NAME: ANDREAS COATES UNIT #: [id number] ROOM: 419 DOCTOR: CHAD SAGASTUME,AMILCAR BIRTHDATE: [birth year] DOS: 03/12/2017 TIME: 11:35 a.m. IMPRESSION: 1. Atrial fibrillation with controlled ventricular rate. 2. LV hypertrophy by voltage criteria. 3. Nonspecific ST-T changes. AMILCAR BONILLA MD CM:EKGRPT:ELECTROCARDIOGRAM REPORT [id number] AMILCAR BONILLA MD
[2017-03-11 13:29] LABS: HEMATOCRIT 41.1 % (37.0-47.0); HEMOGLOBIN 12.9 g/dl (12.0-16.0); MEAN CELL VOLUME 97.2 fl (81.0-99.0); MEAN CORPUSCULAR HGB 30.5 pg (27.0-31.0); MEAN CORPUSCULAR HGB CONC 31.4 g/dl (33.0-37.0); MEAN PLATELET VOLUME 10.3 fl (9.6-12.3); PLATELET COUNT AUTOMATED 270 10*3/uL (130-400); RED BLOOD COUNT 4.23 10*6/uL (4.10-5.10); RED CELL DISTRI WIDTH 14.7 % (0-14.5)
[2017-03-11 13:43] LABS: ALBUMIN 3.3 gm/dl (3.1-4.5); ALKALINE PHOSPHATASE 131 U/L (45-117); BUN 14 mg/dl (7-24); CHLORIDE 103 mmol/L (98-107); CREATININE 0.82 mg/dL (0.55-1.02); POTASSIUM 3.8 mmol/L (3.5-5.1); SGOT/AST 31 IU/L (3-35); SGPT/ALT 20 U/L (12-78); SODIUM 139 mmol/L (136-145); TOTAL PROTEIN 8.1 gm/dL (6.4-8.2)
[2017-03-11 13:47] LABS: PLATELET SUFFICIENCY NORMAL (NORMAL); TOTAL CELLS COUNTED 100 #CELLS
[2017-03-11 14:14] LABS: BILIRUBIN NEGATIVE (NEGATIVE); BLOOD 2+ (NEGATIVE); CLARITY CLOUDY (CLEAR); COLOR YELLOW (YELLOW); GLUCOSE 3+ (NEGATIVE); KETONE TRACE (NEGATIVE); LEUKO ESTERASE NEGATIVE (NEGATIVE); NITRITE NEGATIVE (NEGATIVE); PH 5.5 (5.0-9.0); SPECIFIC GRAVITY 1.025 (1.005-1.030); UROBILINOGEN 0.2 E.U./dl (0.2-1.0)
[2017-03-11 14:26] LABS: BACTERIA 3+
--- NOTE | 2017-03-11 15:00 | NUR ---
PT REMOVED FROM BACKBOARD
--- NOTE | 2017-03-11 16:00 | NUR ---
A 77, admitted to , under the services of LALA Zaldivar DO with a diagnosis of RHABDOMYOLYSIS, CERVICAL STRAIN, FALL. Chief complaint is FALL @ HOME. Patient arrived via bed from ER. Monitor applied. Initial assessment completed. Vital signs taken and recorded. LALA ZALDIVAR DO notified of admission to the unit. Orders received. See assessment for past medical history, medications and allergies. Patient and/or family oriented to unit. [facility] visitation policy reviewed. Clothing/patient valuable form completed. JOSH MALCOLM
[2017-03-11] MEDS ORDERED: VITAMIN D31000 UNI1 PO (16:32)
[2017-03-11] MEDS ORDERED: PHOSPHA 250 NE250 MG PO (16:33)
[2017-03-11] MEDS ORDERED: [UNRECOGNIZED DRUG - OTHER] PO (16:39)
[2017-03-11] MEDS ORDERED: NATURE'S BLEND F1 MG PO (16:40)
[2017-03-11] MEDS ORDERED: METHOTREXATE2.5 M1 PO (16:40)
[2017-03-12] VITALS: BP 135/82
[2017-03-12 06:17] LABS: BASO % 0.5 % (0.0-1.0); EOS # 0.1 10*3/uL (0.0-0.4); EOS % 1.6 % (1.0-4.0); LYMPH # 0.7 10*3/uL (1.3-4.4); LYMPH % 9.1 % (27.0-41.0); MEAN CELL VOLUME 97.5 fl (81.0-99.0); MEAN CORPUSCULAR HGB CONC 31.8 g/dl (33.0-37.0); MEAN PLATELET VOLUME 10.7 fl (9.6-12.3); MONO # 0.4 10*3/uL (0.1-1.0); MONO % 4.9 % (3.0-9.0); NEUT # 6.8 10*3/uL (2.3-7.9); NEUT % 83.3 % (47.0-73.0); PLATELET COUNT AUTOMATED 222 10*3/uL (130-400); RED BLOOD COUNT 3.55 10*6/uL (4.10-5.10); RED CELL DISTRI WIDTH 14.7 % (0-14.5); WHITE BLOOD COUNT 8.2 10*3/uL (4.8-10.8)
[2017-03-12 06:20] LABS: HEMATOCRIT 34.6 % (37.0-47.0)
[2017-03-12 06:28] LABS: BUN 16 mg/dl (7-24); CHLORIDE 111 mmol/L (98-107); CREATININE 0.61 mg/dL (0.55-1.02); MAGNESIUM 1.9 mg/dL (1.5-2.1); PHOSPHOROUS 1.4 mg/dL (2.5-4.9); POTASSIUM 3.3 mmol/L (3.5-5.1); SODIUM 142 mmol/L (136-145)
[2017-03-12 06:38] LABS: THYROID STIM HORMONE (HS) 0.683 uIU/ml (0.358-4.75)
[2017-03-12 08:00] VITALS: BP 124/74
--- NOTE | 2017-03-12 11:51 | NUR ---
called [facility]. they are to fax med list.
[2017-03-12 12:00] VITALS: BP 106/62
[2017-03-12] MEDS ORDERED: LOPRESSOR25 MG PO (12:43)
[2017-03-12] MEDS ORDERED: K-PHOS500 MG PO (12:45)
[2017-03-12 16:00] VITALS: BP 102/51
--- NOTE | 2017-03-12 17:10 | NUR ---
BEDSIDE GLUCOSE PERFORMED WITH A RESULT OF 299. PT HAD DOSE OF METFORMIN BEFORE IT WAS DISCONTINUED BY THE DR. REFUSES INSULIN AT THIS TIME.
--- NOTE | 2017-03-12 19:48 | NUR ---
PATIENT RESTING IN BED WATCHING TV. NO NEEDS MADE. STATES LEFT HIP IS SORE. REDNESS NOTED UNDER ABD SKIN FLAP, NO OPEN AREAS NOTED AT THIS TIME. BED IN LOWEST POSITINO, CALL LIGHT IN REACH
[2017-03-12 20:00] VITALS: BP 95/54
[2017-03-13] VITALS: BP 120/77
--- NOTE | 2017-03-13 01:53 | NUR ---
24 HR chart check completed.
--- NOTE | 2017-03-13 03:28 | NUR ---
PATIENT RESTING IN BED WITH EYES CLOSED. RESPS EASY AND REGULAR, BED IN LOWEST POSITION, CALL LIGHT IN REACH
--- NOTE | 2017-03-13 04:41 | NUR ---
PATIENT MEDICATED WITH PRN NORCO FOR PAIN IN LEFT LEG RATED 9/10 ON A 0/10 PAIN SCALE
[2017-03-13 06:06] LABS: ALBUMIN 2.4 gm/dl (3.1-4.5); ALKALINE PHOSPHATASE 88 U/L (45-117); BUN 22 mg/dl (7-24); CHLORIDE 112 mmol/L (98-107); CREATININE 0.64 mg/dL (0.55-1.02); LIPASE 153 U/L (73-393); MAGNESIUM 1.8 mg/dL (1.5-2.1); PHOSPHOROUS 1.9 mg/dL (2.5-4.9); POTASSIUM 3.4 mmol/L (3.5-5.1); SGOT/AST 21 IU/L (3-35); SGPT/ALT 17 U/L (12-78); SODIUM 144 mmol/L (136-145); TOTAL PROTEIN 6.1 gm/dL (6.4-8.2)
[2017-03-13 06:11] LABS: BASO % 0.4 % (0.0-1.0); EOS # 0.3 10*3/uL (0.0-0.4); EOS % 4.3 % (1.0-4.0); HEMATOCRIT 31.7 % (37.0-47.0); HEMOGLOBIN 9.8 g/dl (12.0-16.0); LYMPH # 1.2 10*3/uL (1.3-4.4); LYMPH % 15.8 % (27.0-41.0); MEAN CELL VOLUME 99.7 fl (81.0-99.0); MEAN CORPUSCULAR HGB 30.8 pg (27.0-31.0); MEAN CORPUSCULAR HGB CONC 30.9 g/dl (33.0-37.0); MEAN PLATELET VOLUME 10.8 fl (9.6-12.3); MONO # 0.6 10*3/uL (0.1-1.0); MONO % 7.7 % (3.0-9.0); NEUT # 5.3 10*3/uL (2.3-7.9); NEUT % 71.3 % (47.0-73.0); PLATELET COUNT AUTOMATED 200 10*3/uL (130-400); RED BLOOD COUNT 3.18 10*6/uL (4.10-5.10); RED CELL DISTRI WIDTH 15.2 % (0-14.5); WHITE BLOOD COUNT 7.4 10*3/uL (4.8-10.8)
[2017-03-13 08:00] VITALS: BP 110/68
--- NOTE | 2017-03-13 09:57 | NUR ---
PTS IV SITE LEAKING AT THIS TIME. PER DR. MONCADA DO NOT RESTICK PATIENT AT PRESENT.
[2017-03-13 12:00] VITALS: BP 123/82
--- NOTE | 2017-03-13 13:49 | NUR ---
SPOKE WITH DR. LAWLER REGARDING PATIENT REFUSING INSULIN COVERAGE AND HE STATED HE WOULD RESTART HER METFORMIN.
[2017-03-13 16:00] VITALS: BP 123/88
--- NOTE | 2017-03-13 19:43 | NUR ---
Shift chart check completed.24 HR chart check completed.
--- NOTE | 2017-03-13 19:47 | NUR ---
ON ASSESSMENT PATIENT SITTING ON BSC. WAS ASSISTED THERE BY THE AIDE WHO SAYS PATIENT DOESN'T LIKE TO GET OUT OF BED. ENCOURAGED DEEP BREATHING AND LEG EXERCISES. HER RT ANKLE LOOKS LARGER THAN LEFT AND SHE DOES NOT BEAR WT FULLY. SHE'S USED THE WALKER WITH THE AID TO GET BACK IN BED. SEE ALL APPROPRIATE INTERVENTIONS.
[2017-03-13 20:00] VITALS: BP 145/63
--- NOTE | 2017-03-13 21:26 | NUR ---
NORCO FOR PAIN IN RT ANKLE "7 OR 8".
--- NOTE | 2017-03-13 23:04 | NUR ---
RESTING QUIETLY WITH EYES CLOSED APPARENT RELIEF FROM EARLIER NORCO.
[2017-03-14] VITALS: BP 120/79
[2017-03-14 06:27] LABS: BASO # 0.1 10*3/uL (0.0-0.1); BASO % 0.9 % (0.0-1.0); EOS # 0.5 10*3/uL (0.0-0.4); EOS % 6.8 % (1.0-4.0); HEMATOCRIT 34.7 % (37.0-47.0); HEMOGLOBIN 10.7 g/dl (12.0-16.0); LYMPH % 15.8 % (27.0-41.0); MEAN CELL VOLUME 99.7 fl (81.0-99.0); MEAN CORPUSCULAR HGB 30.7 pg (27.0-31.0); MEAN CORPUSCULAR HGB CONC 30.8 g/dl (33.0-37.0); MEAN PLATELET VOLUME 10.7 fl (9.6-12.3); MONO # 0.4 10*3/uL (0.1-1.0); MONO % 6.7 % (3.0-9.0); NEUT # 4.5 10*3/uL (2.3-7.9); NEUT % 69.2 % (47.0-73.0); PLATELET COUNT AUTOMATED 230 10*3/uL (130-400); RED BLOOD COUNT 3.48 10*6/uL (4.10-5.10); RED CELL DISTRI WIDTH 15.3 % (0-14.5); WHITE BLOOD COUNT 6.6 10*3/uL (4.8-10.8)
[2017-03-14 06:40] LABS: ALBUMIN 2.7 gm/dl (3.1-4.5); ALKALINE PHOSPHATASE 93 U/L (45-117); BUN 15 mg/dl (7-24); CHLORIDE 108 mmol/L (98-107); CREATININE 0.75 mg/dL (0.55-1.02); MAGNESIUM 1.7 mg/dL (1.5-2.1); PHOSPHOROUS 2.2 mg/dL (2.5-4.9); POTASSIUM 3.3 mmol/L (3.5-5.1); SGOT/AST 20 IU/L (3-35); SGPT/ALT 17 U/L (12-78); SODIUM 142 mmol/L (136-145); TOTAL PROTEIN 6.6 gm/dL (6.4-8.2)
--- NOTE | 2017-03-14 07:59 | NUR ---
PT REQUESTED AND RECEIVED PO TYLENOL PER PRN ORDER FOR C/O GENERALIZED DISCOMFORT/ARTHRITIC PAIN. CHRONIC ACHINESS/DISCOMFORT PER PT. WILL MONITOR EFFECTIVENESS. CALL LIGHT WITHIN REACH. VSS.
[2017-03-14 08:00] VITALS: BP 141/87
--- NOTE | 2017-03-14 08:30 | NUR ---
Programming Internship in to talk to patient. Patient states lives at HOME IN AN APARTMENT ALONE with . There are 4 steps in the home. Physician: DR OROPEZA [facility] Home health services: NONE Patient's level of ADLs: MODERATE ASSIST Patient has working utilities: YES DME: WALKER Follow-up physician's appointment after d/c: WILL BE MADE PRIOR TO DC Does patient want to access PORTAL?: Discharge plan . VALENCIA SCOTT PT REQUESTS SNF STAY AT [facility] SHE IS HAVING DIFFICULTY WALKING. DC USER SUPPORT ANALYST WILL MAKE REFERRAL.
--- NOTE | 2017-03-14 08:57 | NUR ---
Patient requested to be referred to [facility] nelli, has been there previously. Contacted Milka Giraldo and faxed referral. Waiting on acceptance.
--- NOTE | 2017-03-14 10:55 | NUR ---
Occupational Therapy evaluation completed this date on 4 with full eval to follow. Precautions include fall risk, moderate complexity level 32121, r ankle pain, ww use. Recommend OT per POC and SNF to enable safe return home at [facility]. Thank you for this referral. Whitley Major OTR/l
--- NOTE | 2017-03-14 10:56 | NUR ---
Patient has used all 100 of her Medicare skilled days and does not have [place] medicaid. Patient has asked to be referred to [facility]. Contacted Summer Yadav and asked for her to review paperwork for eligibility. Waiting on reply.
--- NOTE | 2017-03-14 10:58 | NUR ---
PHYSICAL THERAPY PAtient evaluated on 4, full evaluation to follow. Continue with PT as per plan of care with fall, servere right ankle pain and mod (A) precautions. PAtient requires SNF for impaired mobility in order to return to home at (I) PLOF. PAtient is moderate complexity via chart review, test and evaluation: 17202. Thank you for this referral. Daphnie javier,PT
--- NOTE | 2017-03-14 14:49 | NUR ---
PT GIVEN PO TYLENOL PER PRN ORDER FOR C/O ARTHRITIC PAIN. WILL MONITOR EFFECTIVENESS. CALL LIGHT WITHIN REACH.
--- NOTE | 2017-03-14 15:20 | NUR ---
Patient requested to speak with financial planner. Went into room, friend/neighbor who cares for patient at bedside. discussed patients very slim options. She has used 100 of her skilled days and would only qualify for skilled care as private pay, patient stated she is unable to do that. Explained the need for the patient to apply for [place] medicaid, patients friend Savita Colleen stated she is willing to help her do that. I also explained to both that although I did fax her medical information to [facility], chances are very high this patient will not qualify for LTACH, therefore she will have no choice but to be discharged to home and resume home health services.
--- NOTE | 2017-03-14 15:45 | NUR ---
TYLENOL EFFECTIVE PER PT. WILL CONTINUE TO MONITOR.
[2017-03-14 16:00] VITALS: BP 106/89
[2017-03-14 20:00] VITALS: BP 146/88
--- NOTE | 2017-03-14 20:03 | NUR ---
193 RESTING IN BED WITH HOB ELEVATED. SIDE RAILS UP X'S 2. CALL LIGHT IN REACH. ALERT AND PLEASANT. NO C/O'S VOICED. NO IV SITE NOTED. BED ALARM INTACT.
--- NOTE | 2017-03-14 21:48 | NUR ---
2145M TYLENOL 2 PO GIVEN FOR C/O'S PAIN R ANKLE.RATES PAIN A "6". WILL MONITOR.
--- NOTE | 2017-03-14 23:38 | NUR ---
EARLIER PAIN MED EFFECTIVE.
[2017-03-15] VITALS: BP 157/89
--- NOTE | 2017-03-15 00:15 | NUR ---
RESTING IN BED WITH EYES CLOSED. APPEARS TO BE SLEEPING. BED ALARM INTACT.
--- NOTE | 2017-03-15 02:05 | NUR ---
0100 UP TO [facility] WITH WALKER AND 1 ASSIST. WEAK. DOES NOT BEAR OWN WEIGHT WELL. VOIDED. ASSISTED BACK TO BED. HOB ELEVATED. CALL LIGHT IN REACH. BED ALARM INTACT.
--- NOTE | 2017-03-15 06:10 | NUR ---
SLEPT AT INTERVALS THIS SHIFT. NO DISTRESS NOTED.
[2017-03-15 06:20] LABS: BASO # 0.1 10*3/uL (0.0-0.1); BASO % 0.9 % (0.0-1.0); EOS # 0.4 10*3/uL (0.0-0.4); EOS % 7.3 % (1.0-4.0); HEMATOCRIT 36.7 % (37.0-47.0); HEMOGLOBIN 11.2 g/dl (12.0-16.0); LYMPH % 18.5 % (27.0-41.0); MEAN CELL VOLUME 98.9 fl (81.0-99.0); MEAN CORPUSCULAR HGB 30.2 pg (27.0-31.0); MEAN CORPUSCULAR HGB CONC 30.5 g/dl (33.0-37.0); MEAN PLATELET VOLUME 10.6 fl (9.6-12.3); MONO # 0.6 10*3/uL (0.1-1.0); NEUT # 3.5 10*3/uL (2.3-7.9); NEUT % 62.4 % (47.0-73.0); PLATELET COUNT AUTOMATED 236 10*3/uL (130-400); RED BLOOD COUNT 3.71 10*6/uL (4.10-5.10); RED CELL DISTRI WIDTH 15.2 % (0-14.5); WHITE BLOOD COUNT 5.6 10*3/uL (4.8-10.8)
[2017-03-15 06:43] LABS: BUN 13 mg/dl (7-24); CHLORIDE 106 mmol/L (98-107); CREATININE 0.71 mg/dL (0.55-1.02); PHOSPHOROUS 2.1 mg/dL (2.5-4.9); POTASSIUM 3.5 mmol/L (3.5-5.1); SODIUM 143 mmol/L (136-145)
--- NOTE | 2017-03-15 07:22 | NUR ---
Patient is unable to go to skilled facilities because she has used all 100 of her skilled days and would have to be private pay, patient states she doesn't have the funds to do that. I referred to [facility], they stated they are unable to accept this patient at this time. I discussed with this patient and her friend/supervisor marble that until she is able to apply for [place] there isn't anything else available to her at this time. She will have to go home with home health until she receives her medicaid or at least pending medicaid.
[2017-03-15 08:00] VITALS: BP 150/86
--- NOTE | 2017-03-15 09:31 | NUR ---
Discussed with patients friend/livestock caretaker that patient will be discharged to home with home health. She stated she had talked with the land manager of the apartment complex and the land manager stated if she can't walk, she can't return because they are not handicap accessable. patient stated she needs her shoes so she can walk with PT. I called her talent manager and asked if she could please bring her shoes so we can get a more accurate PT assessement.
--- NOTE | 2017-03-15 10:07 | NUR ---
PHYSICAL THERAPY Nel seen this AM 1:1 for her therapy. Transfer supine/sit, sitting balance independent. Sit/stand and standing balance MOD A X 1, X 3, with sitting rest after each stand. Then very short gait with wheeled walker 4' X 1, with right ankle pain and she said that her ankle pain was better today then yesterday. End with act Ex to bilateral LE of marching, LAQ's, and ankle pumps X 15 reps each. JYOTI MCCOLLUM BOARD WINDER.
--- NOTE | 2017-03-15 12:20 | NUR ---
MEDICATED PO TYLENOL FOR C/O RIGHT ANKLE AND FOOT PAIN. RATES PAIN A 5/10.
--- NOTE | 2017-03-15 12:48 | NUR ---
PHYSICAL THERAPY Nel seen this PM 1:1 for her therapy gait. Pt was sitting up at bedside when i came into the room. Pt dressed has foot brace on right ankle and her shoes on. Transfer sit/stand and up on wheeled walker standing balance MIN A X 1. Pt could only gait 6' X 1, due to right ankle/foot pain and had to sit, MOD A X 1. Then sit/stand MIN A X 1, and with wheeled walker side step to the head of the bed 3' then sit and said thats all, i cant do anymore MOD A X 1. Pt was going to sit up at bedside said her sister was coming in, treatment time 15 min. JYOTI MCCOLLUM BOOSTER OPERATOR.
--- NOTE | 2017-03-15 13:55 | NUR ---
Milka Giraldo from [facility] stated they are willing to take this patient to [facility] in [place] under the agreement that the patient agrees to apply for [place] Medicaid. Milka and I both went in and discussed this with the patient and she was in agreement. Patient can go today.
[2017-03-15] MEDS ORDERED: BACTRIM 400-801 EACH PO (14:26)
--- NOTE | 2017-03-15 15:03 | NUR ---
Patient accepted to [facility] in [place] and discharged. Sister Daphnie is transporting at 3PM. NH, nursing and family notified.
--- NOTE | 2017-03-15 15:05 | NUR ---
Discharge instructions reviewed with patient/family. Patient receptive and verbalizes understanding. Follow-up care arranged. Written instructions given to patient/family. Pt trrasnported to lobby accompanied by sister, via wheel chair. Nurse to nurse report given to Susie at [facility].
--- NOTE | 2017-03-16 08:07 | NUR ---
PHYSICAL THERAPY CO-SIGN I approve of the Phyical Therapy notes written above. EPIFANIO EMMANUEL PT
== END 2017-03-15 15:05 | disposition other institution (70) | DRG 872 ==
LOC: ED 12:40 → EDHOLD 15:38 → 4E 15:38
PROVIDERS: Emergency Medicine; Student in an Organized Health Care Education/Training Program; ADMIT Internal Medicine
DX: A41.9 Sepsis, unspecified organism (principal); D68.9 Coagulation defect, unspecified; E11.65 Type 2 diabetes mellitus with hyperglycemia; E44.1 Mild protein-calorie malnutrition; R17 Unspecified jaundice; N39.0 Urinary tract infection, site not specified; T79.6XXA Traumatic ischemia of muscle, initial encounter; I48.0 Paroxysmal atrial fibrillation; S16.1XXA Strain of muscle, fascia and tendon at neck level, initial encounter; Z66 Do not resuscitate; E78.5 Hyperlipidemia, unspecified; I10 Essential (primary) hypertension; E21.0 Primary hyperparathyroidism; Z51.5 Encounter for palliative care; T45.515A Adverse effect of anticoagulants, initial encounter; Z96.1 Presence of intraocular lens; M06.9 Rheumatoid arthritis, unspecified; B96.20 Unspecified Escherichia coli [E. coli] as the cause of diseases classified elsewhere; W18.30XA Fall on same level, unspecified, initial encounter; Y93.89 Activity, other specified; Y92.002 Bathroom of unspecified non-institutional (private) residence as the place of occurrence of the external cause; Y99.8 Other external cause status; Z79.01 Long term (current) use of anticoagulants; Z79.2 Long term (current) use of antibiotics; Z79.84 Long term (current) use of oral hypoglycemic drugs; Z79.899 Other long term (current) drug therapy; Z86.73 Personal history of transient ischemic attack (TIA), and cerebral infarction without residual deficits; I25.2 Old myocardial infarction; Z87.81 Personal history of (healed) traumatic fracture; Z87.442 Personal history of urinary calculi; Z90.49 Acquired absence of other specified parts of digestive tract; Z98.49 Cataract extraction status, unspecified eye; Z87.891 Personal history of nicotine dependence; Z82.49 Family history of ischemic heart disease and other diseases of the circulatory system; Z83.3 Family history of diabetes mellitus; Z82.3 Family history of stroke; Z80.9 Family history of malignant neoplasm, unspecified; Z68.27 Body mass index [BMI] 27.0-27.9, adult

== ENCOUNTER → 2017-09-13 | Outpatient (CLI) | payer MEDICARE, OTHER ==
[~2017-09-13] MED LIST changes: +BACTRIM 400-801 EACH PO; +K-PHOS500 MG PO; +METHOTREXATE2.5 M1 PO; +NATURE'S BLEND F1 MG PO; +PHOSPHA 250 NE250 MG PO; +VITAMIN D31000 UNI1 PO
== END | disposition home or self-care (01) ==
LOC: NM 01:09
DX: D36.7 Benign neoplasm of other specified sites (principal)

== ENCOUNTER 2018-03-22 02:52 | Emergency (ER) | payer MEDICARE, OTHER ==
[~2018-03-22] VITALS: Ht 170.1 cm; Wt 83.9 kg
[2018-03-22 02:52] VITALS: BP 160/89
== END 2018-03-22 05:23 | disposition home or self-care (01) ==
LOC: ED 02:52
DX: S39.012A Strain of muscle, fascia and tendon of lower back, initial encounter (principal); S29.012A Strain of muscle and tendon of back wall of thorax, initial encounter; S09.90XA Unspecified injury of head, initial encounter; I25.2 Old myocardial infarction; E78.5 Hyperlipidemia, unspecified; I10 Essential (primary) hypertension; E11.9 Type 2 diabetes mellitus without complications; I48.0 Paroxysmal atrial fibrillation; Z87.891 Personal history of nicotine dependence; Z86.718 Personal history of other venous thrombosis and embolism; Z86.73 Personal history of transient ischemic attack (TIA), and cerebral infarction without residual deficits; Z79.899 Other long term (current) drug therapy; W07.XXXA Fall from chair, initial encounter; Y93.89 Activity, other specified; Y92.89 Other specified places as the place of occurrence of the external cause; Y99.8 Other external cause status

== ENCOUNTER → 2019-01-03 | Outpatient (CLI) | payer MEDICARE, OTHER, MEDICAID ==
[~2019-01-03] MED LIST changes: +ALBUTEROL0.63 MG/3 INH; +CELECOXIB200 M1 PO; +CLARITIN10 MG PO; +ELIQUIS5 M1 PO; +FEROSUL325 MG PO; +LEVOFLOXACIN500 MG PO; +MUCINEX ER600 MG PO; +PREDNISONE10 MG PO; +ZOLOFT25 MG PO
== END | disposition home or self-care (01) ==
LOC: US 01:22
DX: N93.9 Abnormal uterine and vaginal bleeding, unspecified (principal)

== ENCOUNTER → 2019-01-22 | Outpatient (CLI) | payer MEDICARE, OTHER, MEDICAID | END | disposition home or self-care (01) | LOC: US 10:46 | DX: N93.9 Abnormal uterine and vaginal bleeding, unspecified (principal) ==

== ENCOUNTER 2019-07-12 17:05 | Inpatient (IN) | payer MEDICARE, OTHER, MEDICAID ==
[~2019-07-12] VITALS: Ht 157.4 cm; Wt 65.0 kg
[2019-07-12 17:16] VITALS: BP 99/72
--- NOTE | 2019-07-12 17:35 | NUR ---
MEET PLACED ON PT PER DOCTORS ORDER.
[2019-07-12 18:30] LABS: BASO % 0.4 % (0.0-1.0); EOS % 0.1 % (1.0-4.0); HEMATOCRIT 40.4 % (37.0-47.0); HEMOGLOBIN 12.2 g/dl (12.0-16.0); LYMPH # 0.8 10*3/uL (1.3-4.4); LYMPH % 10.1 % (27.0-41.0); MEAN CELL VOLUME 101.8 fl (81.0-99.0); MEAN CORPUSCULAR HGB 30.7 pg (27.0-31.0); MEAN CORPUSCULAR HGB CONC 30.2 g/dl (33.0-37.0); MEAN PLATELET VOLUME 11.9 fl (9.6-12.3); MONO # 0.6 10*3/uL (0.1-1.0); MONO % 7.4 % (3.0-9.0); NEUT # 6.3 10*3/uL (2.3-7.9); NEUT % 81.7 % (47.0-73.0); PLATELET COUNT AUTOMATED 226 10*3/uL (130-400); RED BLOOD COUNT 3.97 10*6/uL (4.10-5.10); WHITE BLOOD COUNT 7.7 10*3/uL (4.8-10.8)
[2019-07-12 18:41] LABS: ACT PARTIAL THROMBO TIME 32.4 SECONDS (20.0-32.1); INTERNATIONAL NORM RATIO 1.1 (2.0-3.5)
[2019-07-12 18:49] LABS: LIPASE 113 U/L (73-393)
--- NOTE | 2019-07-12 18:49 | NUR ---
PTS O2 TITRATED DOWN TO 1L. PULSE OX IS 98%
--- NOTE | 2019-07-12 18:49 | NUR ---
PT PLACED ON BED DENNIS.
[2019-07-12 18:50] LABS: ALBUMIN 3.2 gm/dl (3.1-4.5); ALKALINE PHOSPHATASE 71 U/L (45-117); BUN 60 mg/dl (7-24); CHLORIDE 110 mmol/L (98-107); CREATININE 4.01 mg/dL (0.55-1.02); POTASSIUM 5.6 mmol/L (3.5-5.1); SGOT/AST 28 IU/L (3-35); SGPT/ALT 14 U/L (12-78); SODIUM 139 mmol/L (136-145); TOTAL PROTEIN 7.2 gm/dL (6.4-8.2)
--- NOTE | 2019-07-12 18:50 | NUR ---
PTS LACTIC ACID IS 5.7. PROVIDER MADE AWARE.
[2019-07-12 18:53] LABS: TROPONIN I < 0.015 ng/ml (<0.045)
--- NOTE | 2019-07-12 18:54 | NUR ---
LAB CALLED WITH CRITICAL LAB GLUCOSE LEVEL OF 30. NOTIFIED.
[2019-07-12 20:43] LABS: BILIRUBIN NEGATIVE (NEGATIVE); BLOOD 1+ (NEGATIVE); CLARITY CLEAR (CLEAR); COLOR YELLOW (YELLOW); GLUCOSE NEGATIVE (NEGATIVE); KETONE NEGATIVE (NEGATIVE); LEUKO ESTERASE NEGATIVE (NEGATIVE); NITRITE POSITIVE (NEGATIVE); SPECIFIC GRAVITY 1.025 (1.005-1.030); UROBILINOGEN 0.2 E.U./dl (0.2-1.0)
[2019-07-12 20:54] LABS: BACTERIA 1+; WBC 0-2 wbc/hpf (0-5)
--- NOTE | 2019-07-12 21:15 | NUR ---
LACTIC ACID 5.8. DR. PARKS AWARE.
[2019-07-12 22:30] VITALS: BP 91/64
[2019-07-12 22:56] LABS: ALBUMIN 3.1 gm/dl (3.1-4.5); CREATININE 4.19 mg/dL (0.55-1.02); TOTAL PROTEIN 6.8 gm/dL (6.4-8.2)
--- NOTE | 2019-07-12 23:04 | NUR ---
CRITICAL LAB RECIEVED. BLOOD GLUCOSE 40. NOTIFIED DR SEGURA. WILL HANG DEXTROSE PER ORDERS.
--- NOTE | 2019-07-13 00:08 | NUR ---
PATIENT BLOOD SUGAR CURRENTLY 54.
--- NOTE | 2019-07-13 00:50 | NUR ---
DR TRINIDAD REQUESTED WE USE THE IV FLUID WARMER TO ADMINISTER WARM FLUIDS TO PATIENT. WILL RETRIEVE WARMER.
--- NOTE | 2019-07-13 01:20 | NUR ---
PATIENT'S TEMPERATURE NOW UP 97.0 F RECTAL. PATIENT IS CURRENTLY ON BEAR HUGGER. IV WARMER IS NOT YET HOOKED UP. NOTIFIED DR SEGURA OF TEMPERATURE. ORDERS RECIEVED TO NOT CLIENT SERVICES SPECIALIST THE IV FLUIDS TO THE WARMER YET BUT TO KEEP IT IN THE ROOM AND TO KEEP THEM UPDATED ON PATIENT'S TEMPERATURE.
--- NOTE | 2019-07-13 01:27 | NUR ---
A 79, admitted to 5E, under the services of SANDI Latham DO with a diagnosis of ACUTE KIDNEY INJURY, HYPOGYLCEMIA, DEHYDRATION, ACUTE HYPERKALEMIA, LACTIC ACIDOSIS. Chief complaint is SOB. Patient arrived via stretcher from ER. Monitor applied. Initial assessment completed. Vital signs taken and recorded. SANDI LATHAM DO notified of admission to the unit. Orders received. See assessment for past medical history, medications and allergies. Patient and/or family oriented to unit. [facility] 5E visitation policy reviewed. Clothing/patient valuable form completed. BLOOD SUGAR 40 PER LAB. [address] TRINIDAD MADE AWARE. ORDERED D10W AND D5 IN 1/2 NS TO FOLLOW. SYLVESTER HENRIQUEZ ON PATIENT. TONY ROBLEDO
[2019-07-13] MEDS ORDERED: SEPTDS PO (02:11)
[2019-07-13] MEDS ORDERED: ENALAPRIL5 MG PO (02:11)
[2019-07-13] MEDS ORDERED: TUSSIN COU15 MG/5 ML PO (02:13)
[2019-07-13] MEDS ORDERED: TYLENOL325 M1 PO (02:14)
[2019-07-13 02:49] LABS: BASO % 0.5 % (0.0-1.0); EOS % 0.1 % (1.0-4.0); HEMATOCRIT 37.6 % (37.0-47.0); HEMOGLOBIN 11.5 g/dl (12.0-16.0); LYMPH # 0.8 10*3/uL (1.3-4.4); LYMPH % 9.2 % (27.0-41.0); MEAN CORPUSCULAR HGB 30.6 pg (27.0-31.0); MEAN CORPUSCULAR HGB CONC 30.6 g/dl (33.0-37.0); MEAN PLATELET VOLUME 11.3 fl (9.6-12.3); MONO # 1.1 10*3/uL (0.1-1.0); NEUT # 6.9 10*3/uL (2.3-7.9); NEUT % 77.6 % (47.0-73.0); PLATELET COUNT AUTOMATED 200 10*3/uL (130-400); RED BLOOD COUNT 3.76 10*6/uL (4.10-5.10); RED CELL DISTRI WIDTH 14.9 % (0-14.5); WHITE BLOOD COUNT 8.9 10*3/uL (4.8-10.8)
--- NOTE | 2019-07-13 03:04 | NUR ---
NOTIFIED DR HINDS'S ANSWERING SERVICE OF CONSULT.
[2019-07-13 03:06] LABS: CREATININE 4.44 mg/dL (0.55-1.02); PHOSPHOROUS 5.6 mg/dL (2.5-4.9); POTASSIUM 4.5 mmol/L (3.5-5.1); TOTAL PROTEIN 6.4 gm/dL (6.4-8.2)
--- NOTE | 2019-07-13 03:40 | NUR ---
called and notified Dr Brenner of lactic acid 4.0. no new orders received.
--- NOTE | 2019-07-13 04:19 | NUR ---
PATIENT FEELING NAUSEATED. ZOFRAN GIVEN WITH NO RELIEF IN SYMPTOMS. BS IS NOW 63. PATIENT DOES NOT WANT TO EAT OR DRINK ANYTHING. NOTIFIED DR SEGURA AND ORDERS GIVEN TO RUN ANOTHER BAG OF D10W.
--- NOTE | 2019-07-13 04:50 | NUR ---
PATIENT HAD 250 ML OF D10W. BS NOW 192. HOOKED PATIENT BACK UP TO D5W IN 1/2 NS GOING AT 80 ML/HR. WAITING ON NAUSEA MEDICATION TO PROFILE, PATIENT STILL NAUSEATED. WILL CONTINUE TO MONITOR.
--- NOTE | 2019-07-13 05:10 | NUR ---
ZOFRAN NOT EFFECTIVE PER PATIENT. PHENERGAN GIVEN FOR NAUSEA. WILL ASSESS EFFECTIVENESS.
--- NOTE | 2019-07-13 07:38 | NUR ---
DR THACKER GAVE THE OKAY TO ALLOW THE PATIENT TO GO DOWN TO CT. ALSO ORDERS RECIEVED FOR CALAZIME TO BE APPLIED TO PATIENT'S BUTTOCKS AREA AND GROIN AREA NEEDED.
[2019-07-13 08:00] VITALS: BP 101/65
[2019-07-13 12:00] VITALS: BP 108/70
[2019-07-13 16:00] VITALS: BP 113/71
[2019-07-13 16:38] LABS: CREATININE 5.05 mg/dL (0.55-1.02); PHOSPHOROUS 4.8 mg/dL (2.5-4.9); POTASSIUM 4.8 mmol/L (3.5-5.1)
--- NOTE | 2019-07-13 16:55 | NUR ---
CALL PLACED TO DR NORMAN REGARDING LOW URINE OUTPUT REQUESTED BY DR THACKER. AWAITING CALL BACK.
--- NOTE | 2019-07-13 17:17 | NUR ---
PT AWAKE ALERT AND ORIENTED X3, EATING DINNER. WARMING BLANKET CURRENTLY OFF BUT STILL MONITORING TEMP VIA RECTAL PROBE. WILL CONT TO MONITOR. CALL LIGHT IN REACH.
[2019-07-13 18:05] LABS: BILIRUBIN NEGATIVE (NEGATIVE); BLOOD 2+ (NEGATIVE); CLARITY CLEAR (CLEAR); COLOR YELLOW (YELLOW); GLUCOSE NEGATIVE (NEGATIVE); KETONE NEGATIVE (NEGATIVE); LEUKO ESTERASE 2+ (NEGATIVE); NITRITE NEGATIVE (NEGATIVE); PH 6.5 (5.0-9.0); UROBILINOGEN 0.2 E.U./dl (0.2-1.0)
[2019-07-13 18:13] LABS: URINE CREATININE RANDOM 32.5 mg/dL
--- NOTE | 2019-07-13 18:14 | NUR ---
PT REQUESTED WE START CHECKING HER BEDSIDE GLUCOSE A LITTLE LESS FREQUENTLY. SPOKE TO DR THACKER AND NEW ORDER RECEIVED TO CHANGE GLUCOSE CHECKS TO Q4HRS.
[2019-07-13 18:17] LABS: BACTERIA 3+; WBC 31-40 wbc/hpf (0-5)
[2019-07-13 20:00] VITALS: BP 117/77
--- NOTE | 2019-07-13 20:18 | NUR ---
PATIENT SITTING UP IN BED EATING MANDARIN ORANGES. IV FLUIDS INFUSING ORDERED. RESPIRATIONS REGULAR AND NON-LABORED. DENIES COMPLAINTS OF PAIN OR DISCOMFORT AT THIS TIME. WILL CONTINUE TO MONITOR. CALL LIGHT IN REACH.
[2019-07-14] VITALS: BP 124/69
[2019-07-14 07:18] LABS: CREATININE 5.5 mg/dL (0.55-1.02); PHOSPHOROUS 5.4 mg/dL (2.5-4.9); POTASSIUM 4.1 mmol/L (3.5-5.1)
[2019-07-14 08:00] VITALS: BP 142/81
[2019-07-14 08:37] LABS: BASO % 0.1 % (0.0-1.0); HEMATOCRIT 34.3 % (37.0-47.0); HEMOGLOBIN 10.5 g/dl (12.0-16.0); LYMPH # 0.7 10*3/uL (1.3-4.4); LYMPH % 9.7 % (27.0-41.0); MEAN CELL VOLUME 97.2 fl (81.0-99.0); MEAN CORPUSCULAR HGB 29.7 pg (27.0-31.0); MEAN CORPUSCULAR HGB CONC 30.6 g/dl (33.0-37.0); MEAN PLATELET VOLUME 11.8 fl (9.6-12.3); MONO # 0.8 10*3/uL (0.1-1.0); MONO % 10.5 % (3.0-9.0); NEUT # 5.8 10*3/uL (2.3-7.9); NEUT % 79.6 % (47.0-73.0); PLATELET COUNT AUTOMATED 189 10*3/uL (130-400); RED BLOOD COUNT 3.53 10*6/uL (4.10-5.10); RED CELL DISTRI WIDTH 15.2 % (0-14.5); WHITE BLOOD COUNT 7.3 10*3/uL (4.8-10.8)
--- NOTE | 2019-07-14 09:08 | NUR ---
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 [employer] SALES COUNTER MANAGER received Palliative referral, however the [place] resides [place] and Palliative would be unable to follow. Patient can return to [facility] when medically stable. -TIMOTHY Vyas
[2019-07-14 12:00] VITALS: BP 133/90
[2019-07-14 16:00] VITALS: BP 134/50
--- NOTE | 2019-07-14 19:55 | NUR ---
RESTING IN BED WATCHING TV. TRYING TO TURN TV UP WITH TELEPHONE. ORIENTED PATIENT ON TV REMOTE. DENIES COMPLAINTS OF PAIN OR DISCOMFORT AT THIS TIME. PATIENT VERY PLEASANT. RESPIRATIONS REGULAR AND NON LABORED. WILL CONTINUE TO MONITOR. CALL LIGHT IN REACH.
[2019-07-14 20:00] VITALS: BP 165/98
--- NOTE | 2019-07-14 20:07 | NUR ---
PATIENT HAD A SMALL EMESIS. MEDICATED WITH ZOFRAN 4MG. WILL MONITOR FOR EFFECTIVENESS. CALL LIGHT IN REACH.
[2019-07-15] VITALS: BP 162/104
--- NOTE | 2019-07-15 01:05 | NUR ---
DR. VEGA NOTIFIED OF PATIENT'S BLOOD PRESSURE OF 162/104.
[2019-07-15 06:58] LABS: ALBUMIN 2.6 gm/dl (3.1-4.5); CREATININE 6.42 mg/dL (0.55-1.02); PHOSPHOROUS 4.4 mg/dL (2.5-4.9); POTASSIUM 3.9 mmol/L (3.5-5.1)
[2019-07-15 07:43] LABS: HEMATOCRIT 33.8 % (37.0-47.0); HEMOGLOBIN 10.8 g/dl (12.0-16.0); MEAN CORPUSCULAR HGB 29.7 pg (27.0-31.0); MEAN PLATELET VOLUME 11.5 fl (9.6-12.3); PLATELET COUNT AUTOMATED 182 10*3/uL (130-400); RED BLOOD COUNT 3.64 10*6/uL (4.10-5.10); RED CELL DISTRI WIDTH 14.8 % (0-14.5)
[2019-07-15 07:45] LABS: MEAN CELL VOLUME 92.9 fl (81.0-99.0)
[2019-07-15 07:58] VITALS: BP 142/86
[2019-07-15 08:12] LABS: PLATELET SUFFICIENCY NORMAL (NORMAL); TOTAL CELLS COUNTED 100 #CELLS
--- NOTE | 2019-07-15 08:12 | NUR ---
VITALS STABLE. MAYTE. A&OX3. HEART SOUNDS NORMAL. LUNGS DIMINISHED THROUGHOUT. ACTIVE BSX4, NON TENDER NON DISTENDED. PACHECO PATENT WITH PALE YELLOW URINE. SKIN PINK WARM DRY AND INTACT. <3 CAP REFILL. PPP. IV SITE DRY AND INTACT, NO REDNESS OR SWELLING. NO COMPLAINTS OF PAIN AT THIS TIME. WILL CONTINUE TO ASSESS. MARIKA SALAZARCC
[2019-07-15 08:13] LABS: BURR CELLS FEW; OVALOCYTES FEW
[2019-07-15 08:28] LABS: VITAMIN D, 25-HYDROXY 30.3 ng/mL (30-100)
[2019-07-15 08:29] LABS: PTH INTACT 130.1 pg/mL (18.5-88.0)
--- NOTE | 2019-07-15 08:31 | NUR ---
PHYSICAL THERAPY Screen received as well as orders for PT will follow Fidelina Lewis PT
--- NOTE | 2019-07-15 09:35 | NUR ---
Patient is LTC at [facility]. CYLINDER SANDER OPERATOR faxed updates to [facility]. CYLINDER SANDER OPERATOR faxed Palliative Order to [facility]. Patient can return to [facility] when medically stable. -LENA VyasW
--- NOTE | 2019-07-15 09:41 | NUR ---
PHYSICAL THERAPY PT eval at bedside this morning. Please see eval for details/goals/poc. Able to sit at edge bed x5 min with assist; then back to supine with assist secondary persistent severe nausea. Nursing to medicate. Gave good effort despite nausea. DC plan: return to LTC. Kayla Hankins, PT
--- NOTE | 2019-07-15 10:03 | NUR ---
PT C/O NAUSEA. ZOFRAN 4MG GIVEN IV. WILL CONTINUE TO ASSESS. MARIKA SALAZARCC
--- NOTE | 2019-07-15 12:00 | NUR ---
LINH DAVIS NOTIFIED THAT UA QUARTZ ORIENTATOR NOT COVERED BY ROCEPHIN. MARIKA SALAZARCC
[2019-07-15 12:13] VITALS: BP 132/72
--- NOTE | 2019-07-15 13:20 | NUR ---
Occupational therapy orders received and chart reviewed. Patient was seated in the chair upon arrival eating lunch. Following introduction and explanation of the purpose/benefits of OT, patient stated "I'm eating lunch" and "I was doing things all morning, I'm just too tired today." Patient's PLOF was obtained. Will follow up with patient for completion of OT evaluation and POC when appropriate. Thank you. Francisca Hernandez, OTR/L
--- NOTE | 2019-07-15 13:40 | NUR ---
Occupational therapy orders received and OT evaluation completed in full on floor five. Patient precautions include fall risk, L UE IV, nausea, weakness, and bed/chair alarm. Per OT eval, OT recommends a SNF. Patient would benefit from continued OT treatment to maximize independence with ADLs, mobility, and transfers. Thank you for the referral. Francisca Hernandez, OTR/L
--- NOTE | 2019-07-15 13:45 | NUR ---
PHYSICAL THERAPY Patient seen this pm 1:1 for therapy visit and was resting supine in bed upon therapist arrival. Patient identified by name / and stated she was feeling a little better since the morning intial evaluation. Patient presents with continuos IV treatment while transfering supine to sit EOB with MIN A. Patient tolerated static EOB sit x 3-4 minutes, SBA prior to quick onset of increased Nausea / feeling light headed again. Patient requested return to supine in bed and remained with call light, tray table, telephone and bed alarm for safety. Will continue per POC as tolerated, total treatment time 13 minutes. Zenon Lucia, GAS REVERSER
--- NOTE | 2019-07-15 15:02 | NUR ---
PT IS MCC CARE AT [facility] AND WILL RETURN WHEN MEDICALLY STABLE. WILL CONTINUE TO FOLLOW.
--- NOTE | 2019-07-15 15:30 | NUR ---
Nursing screen received and occupational therapy referral received. Thank you. Whitley Major OTR/L
--- NOTE | 2019-07-15 15:42 | NUR ---
Nutritional Support Services Note: Appetite is fair to good for meals with some flucuation. 1800cal diet as ordered. Moderate protein calorie malnutrition noted. Continue to encourage good po intake. Night snack provided. No other nutrition intervention needed at this time. Will follow if needed. Barbara Lemus Rdn Ld
[2019-07-15 16:00] VITALS: BP 146/102
[2019-07-15 20:00] VITALS: BP 170/110; BP 178/110
--- NOTE | 2019-07-15 20:06 | NUR ---
DR.EISENHART MAX OF MANUAL PRESSURE OF 178/110. STATED TO TELL NEPHROLOGY
--- NOTE | 2019-07-15 20:30 | NUR ---
ANSWERING SERVICES CALLED FOR . MESSAGE TO BE SENT
--- NOTE | 2019-07-15 20:36 | NUR ---
CALLED BACK. STATED TO D/C IVF, GIVE PATIENT TYLENOL FOR SLIGHT HEADACHE AND REPEAT BP IN 2HR, CALL BACK WITH NEW BP
--- NOTE | 2019-07-15 20:47 | NUR ---
TYLENOL GIVEN FOR HEADACHE, WILL CONTINUE TO MONITOR. IVF STOPPED AT THIS TIME WELL.
[2019-07-15 22:40] VITALS: BP 158/94
--- NOTE | 2019-07-15 22:40 | NUR ---
INFORMED OF NEW MANUAL BLOOD PRESSURE OF 158/94. STATED OK.
--- NOTE | 2019-07-15 23:30 | NUR ---
PATIENT IS RESTING IN BED WITH EASY AND REGULAR RESPERS ON 2L VIA NC. ASSESSMENT IS COMPLETE WITH NO S/S OF DISTRESS OR C/O NOTED AT THIS TIME. PATIENT WISHES NOT TO BE DISTURBED AT 0200 FOR BEDSIDE GLUCOSE IF SLEEPING. BED IS LOW, LOCKED, ALARMED, AND CALL LIGHT IS WITHIN REACH. SEE SHIFT ASSESSMENT.
--- NOTE | 2019-07-16 05:11 | NUR ---
PATIENT HAD MULTIPLE EMESIS AT THIS TIME. YELLOW/GREEN ON COLOR WITH FLECKS OF BROWN. WHILE FLUSHING IV LEAKING. IV started left wrist with #24 angiocath after 1 attempts. The IV site was prepped with Chloraprep. Heparin lock attached. Sterile dressing applied. Patient tolerated precedure well. Procedure performed according to [facility] policy & procedure. PRN ZOFRAN GIVEN AND PATIENT TOLERATED WELL. CALL LIGHT IS WITHIN REACH. WILL MONITOR EFFECT. NIKKI HERMAN A
--- NOTE | 2019-07-16 05:15 | NUR ---
BEDSIDE GLUCOSE 117.
[2019-07-16 06:33] LABS: BASO % 0.1 % (0.0-1.0); HEMATOCRIT 36.3 % (37.0-47.0); LYMPH # 0.5 10*3/uL (1.3-4.4); LYMPH % 4.4 % (27.0-41.0); MEAN CELL VOLUME 92.1 fl (81.0-99.0); MEAN CORPUSCULAR HGB 30.5 pg (27.0-31.0); MEAN CORPUSCULAR HGB CONC 33.1 g/dl (33.0-37.0); MEAN PLATELET VOLUME 11.1 fl (9.6-12.3); MONO # 0.9 10*3/uL (0.1-1.0); MONO % 8.2 % (3.0-9.0); NEUT # 9.4 10*3/uL (2.3-7.9); NEUT % 86.7 % (47.0-73.0); PLATELET COUNT AUTOMATED 192 10*3/uL (130-400); RED BLOOD COUNT 3.94 10*6/uL (4.10-5.10); RED CELL DISTRI WIDTH 14.8 % (0-14.5); WHITE BLOOD COUNT 10.8 10*3/uL (4.8-10.8)
[2019-07-16 07:01] LABS: ALBUMIN 2.6 gm/dl (3.1-4.5); CREATININE 6.93 mg/dL (0.55-1.02); POTASSIUM 4.1 mmol/L (3.5-5.1)
[2019-07-16 07:02] LABS: PHOSPHOROUS 5.4 mg/dL (2.5-4.9)
--- NOTE | 2019-07-16 07:30 | NUR ---
PT RESTING IN BED. VOICES NO CONERNS AT THIS TIME. RESPS EASY AND NON LABORED. NO S/S OF DISTRESS NOTED. WHITE BOARD UPDATED. CALL LIGHT WITHIN REACH.
[2019-07-16 08:00] VITALS: BP 153/76
--- NOTE | 2019-07-16 08:34 | NUR ---
MESSAGE LEFT FOR DR AVILES ANSWERING SERVICE REGARDING NEW CONSULT
--- NOTE | 2019-07-16 08:53 | NUR ---
OT NOTE Pt was seen this A.M. 1:1 for 12 minute OT session. Upon arrival pt was supine in bed. Pt identified by name and and had complaints of feeling nauseated however was willing to attempt therapy at this time. Educated pt before transferring of importance of slow rise to decrease risk of becoming dizzy and increasing nauseated feeling. Pt transferred supine to sit EOB with Bin X 2. Pt was able to tolerate aprox 3 minutes of sitting EOB with one LOB occuring backwards at the three minute josh requiring Bin to correct with complaints of feeling dizzy and needing to vomit. Pt requesting to lay down, pt transferred sit to supine with Bin x 2. There she was left with head of bed elevated, call light in hand, tray table in place, and bed alarm activated for safety. Continue with rec D/C plan to SNF. GUDELIA Peraza/Nimesh
--- NOTE | 2019-07-16 09:04 | NUR ---
PHYSICAL THERAPY TREATMENT TIME: 08:45 AM - 08:56 AM 11 MINUTES Patient presented to therapy in supine wit hhead fo bed elevated and basin in hands and complaint of nausea at this time. Patient has no complaint of pain. Patient gives informed consent for treatment. Patient was identified by name and on wristband. Patient performed supine to sitting at EOB with SBA. Patient sat on EOB for 3 minutes with SBA with complaints of nausea. Patient requested transfer back to supine in bed with MIN A X 2. Patient moved up to head of bed with drawsheet with MAX A X 2. Patient left in supine with head of bed elevated, call light within reach and bed alarm activated. Patient was 1:1 with this DIRECTOR ENTERPRISE DATA ARCHITECTURE for 10 minutes total. GUDELIA ISAACLIN WITNESS TO THIS TREATMENT. ROYAL MONAE DIRECTOR ENTERPRISE DATA ARCHITECTURE
[2019-07-16 12:00] VITALS: BP 139/93
--- NOTE | 2019-07-16 12:42 | NUR ---
PT IS NURSING HOME CARE AT [facility] AND CAN RETURN WHEN MEDICALLY STABLE. WILL CONTINUE TO FOLLOW.
--- NOTE | 2019-07-16 14:24 | NUR ---
PT RESTING IN BED. VOICES NO CONCERNS AT THIS TIME. FUTURE PROCEDURES DISCUSSED WITH PATIENT. QUESITONS ANSWERED. RESPS EASY AND NON LABORED. CALL LIGHT WITHIN REACH.
[2019-07-16 15:04] LABS: A/G RATIO 0.8 (0.7-1.7); ALBUMIN 2.7 g/dL (2.9-4.4); ALPHA-1-GLOBULIN 0.2 g/dL (0.0-0.4); ALPHA-2-GLOBULIN 1.1 g/dL (0.4-1.0); BETA GLOBULIN 1.1 g/dL (0.7-1.3); GAMMA GLOBULIN 0.9 g/dL (0.4-1.8); GLOBULIN, TOTAL 3.2 g/dL (2.2-3.9); M-SPIKE Not Observed g/dL (Not Observed); TOTAL PROTEIN, SERUM 5.9 g/dL (6.0-8.5)
[2019-07-16 16:00] VITALS: BP 142/89
--- NOTE | 2019-07-16 16:29 | NUR ---
DR MENARD IN TO SEE PT
[2019-07-16 17:08] LABS: FREE KAPPA LIGHT CHAINS 86.5 mg/L (3.3-19.4); FREE LAMBDA LIGHT CHAINS 64.2 mg/L (5.7-26.3); KAPPA/LAMBDA RATIO 1.35 (0.26-1.65)
--- NOTE | 2019-07-16 17:19 | NUR ---
PT C/O NAUSEA. MEDICATED PER ORDER. WILL MONITOR FOR RELIEF. VOICES NO OTHER CONERNS AT THIS TIME. CALL LIGHT WITHIN REACH
--- NOTE | 2019-07-16 17:41 | NUR ---
Shift chart check completed.
[2019-07-16 20:00] VITALS: BP 138/92
--- NOTE | 2019-07-16 21:52 | NUR ---
PATIENT IS RESTING IN BED WITH EASY AND REGULAR RESPERS ON ROOM AIR. ASSESSMENT IS COMPLETE WITH NO C/O OR S/S OF DISTRESS NOTED AT THIS TIME. BED IS LOW, LOCKED, ALARMED, AND CALL LIGHT IS WITHIN REACH. BEDSIDE GLUCOSE 94. WILL CONTINUE TO MONITOR, SEE SHIFT ASSESSMENT.
[2019-07-17] VITALS: BP 130/82
--- NOTE | 2019-07-17 05:21 | NUR ---
IV started right forearm with #22 angiocath after 1 attempts. The IV site was prepped with Chloraprep. Heparin lock attached. Sterile dressing applied. Patient tolerated precedure well. Procedure performed according to [facility] policy & procedure. NIKKI HERMAN
[2019-07-17 06:27] LABS: BASO % 0.1 % (0.0-1.0); EOS % 0.2 % (1.0-4.0); HEMATOCRIT 38.6 % (37.0-47.0); HEMOGLOBIN 12.2 g/dl (12.0-16.0); LYMPH # 0.8 10*3/uL (1.3-4.4); MEAN CELL VOLUME 91.9 fl (81.0-99.0); MEAN CORPUSCULAR HGB CONC 31.6 g/dl (33.0-37.0); MEAN PLATELET VOLUME 11.5 fl (9.6-12.3); MONO # 1.2 10*3/uL (0.1-1.0); MONO % 9.2 % (3.0-9.0); NEUT # 10.7 10*3/uL (2.3-7.9); PLATELET COUNT AUTOMATED 175 10*3/uL (130-400); WHITE BLOOD COUNT 12.8 10*3/uL (4.8-10.8)
[2019-07-17 07:26] LABS: ALBUMIN 2.5 gm/dl (3.1-4.5); CREATININE 7.44 mg/dL (0.55-1.02); PHOSPHOROUS 5.5 mg/dL (2.5-4.9); POTASSIUM 4.3 mmol/L (3.5-5.1)
--- NOTE | 2019-07-17 08:00 | NUR ---
VITALS STABLE. MAYTE. A&OX3. EQUAL ASSISTED SALES REPRESENTATIVE. HEART SOUNDS NORMAL. LUNGS DIMINISHED THROUGHOUT. ACTIVE BSX4, NON TENDER NON DISTENDED. CATH PATENT WITH CLEAR YELLOW URINE. IV IN RIGHT ARM PATENT, DRY, DRESSING INTACT WITH NO REDNESS OR SWELLING AT SITE . PPP. SKIN PINK WARM DRY AND INTACT. NO COMPLAINTS OF PAIN AT THIS TIME. DEJAN LAN, MARIKACC.
[2019-07-17 08:04] VITALS: BP 140/88
--- NOTE | 2019-07-17 08:22 | NUR ---
24 HR chart check completed.
--- NOTE | 2019-07-17 08:30 | NUR ---
PT TO ULTRASOUND VIA STRETCHER. CONDITION STABLE. DEJAN LAN, MARIKACC
--- NOTE | 2019-07-17 08:30 | NUR ---
Patient resting quietly with no c/o discomfort. Respirations easy and regular. Vital signs stable. No overt distress. TALAT VERDUZCO
--- NOTE | 2019-07-17 09:20 | NUR ---
PT C/O NAUSEA. 4MG ZOFRAN GIVEN IV PUSH. VICTOR HUGO FRANCISCO RN. DEJAN LAN, SPNRCC
--- NOTE | 2019-07-17 10:00 | NUR ---
ZOFRAN 4MG IV PUSH EFFECTIVE. VICTOR HUGO FRANCISCO RN. DEJAN LAN,SPNRCC
[2019-07-17 10:26] VITALS: BP 130/90
--- NOTE | 2019-07-17 11:05 | NUR ---
PHYSICAL THERAPY Patient was aproached for AM therapy session at 11:06 AM and patient was eating breakfast and the nurse said her blood sugar was low. Will check back with patient after lunch. ROYAL MONAE FABRICATION OPERATOR
--- NOTE | 2019-07-17 11:06 | NUR ---
OT NOTE Attempted to see pt this A.M. for OT session and upon arrival pt's nurse reported that her blood sugar was low, requesting to check back at a later time. Will check back at a later time/date and continue with POC as able. GUDELIA Peraza/Nimesh
[2019-07-17 12:06] VITALS: BP 138/98
--- NOTE | 2019-07-17 13:55 | NUR ---
OT NOTE Attempted to see pt this P.M. for OT session and upon arrival pt was supine in bed holding a basin with emesis. Pt had reports of being nauseated, vomiting, and being dizzy. Requesting to rest at this time. Will check back at a later time/date and continue with POC as able. GUDELIA Peraza/Nimesh
--- NOTE | 2019-07-17 13:56 | NUR ---
PHYSICAL THERAPY Patient was approached for therapy session at 1:55 pm and patient was supine in bed with report of nausea , dizziness and vomiting. Patient was not feeling well enough for her therapy session. Will check back at a later date. ROYAL MONAE ER NURSE
--- NOTE | 2019-07-17 15:00 | NUR ---
POC DISCUSSED WITH SISTER/POA.
--- NOTE | 2019-07-17 15:02 | NUR ---
MEDICATED WITH IV ZOFRAN ORDERED PER PT REQUEST FOR C/O VOMITTING.
--- NOTE | 2019-07-17 15:08 | NUR ---
PT IS FDC CARE AT [facility] AND PLAN ARE FOR PT TO RETURN WHEN MEDICALLY STABLE. WILL CONTINUE TO FOLLOW.
[2019-07-17 16:00] VITALS: BP 149/80
--- NOTE | 2019-07-17 17:00 | NUR ---
MEDICATION SOMEWHAT EFFECTIVE FOR NAUSEA.
[2019-07-17 20:00] VITALS: BP 136/90
--- NOTE | 2019-07-17 20:48 | NUR ---
ZOFRAN ADMINISTERED FOR PT C/O NAUSEA.
[2019-07-18] VITALS: BP 138/88
--- NOTE | 2019-07-18 02:45 | NUR ---
24 HOUR CHART CHECK COMPLETE.
--- NOTE | 2019-07-18 05:34 | NUR ---
ZOFRAN ADMINISTERED FOR PT C/O NAUSEA.
[2019-07-18 06:40] LABS: ALBUMIN 2.4 gm/dl (3.1-4.5); CREATININE 7.75 mg/dL (0.55-1.02); PHOSPHOROUS 6.3 mg/dL (2.5-4.9); POTASSIUM 4.4 mmol/L (3.5-5.1)
--- NOTE | 2019-07-18 07:53 | NUR ---
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 Patient can return when medically stable. CORRECTIONAL CASEWORK SPECIALIST faxed updates to [place]. -TIMOTHY Vyas
[2019-07-18 08:00] VITALS: BP 156/98
--- NOTE | 2019-07-18 11:33 | NUR ---
OT NOTE Attempted to see pt this A.M. for OT session and upon arrival pt was under a procedure. Will check back at a later time/date and continue with POC as able. GUDELIA Peraza/Nimesh
[2019-07-18 12:00] VITALS: BP 135/89
--- NOTE | 2019-07-18 12:31 | NUR ---
PT IS CUSTODIAL CARE AT [facility]. PT HAVING TEMPORARY DIALYSIS PORT INSERTED TODAY. CAN RETURN TO [facility] WHEN MEDICALLY STABLE. WILL CONTNUE TO FOLLOW.
--- NOTE | 2019-07-18 12:48 | NUR ---
DR. DEAN NOTIFIED OF MOST RECENT LACTIC ACID RESULT.
--- NOTE | 2019-07-18 14:21 | NUR ---
OT NOTE Attempted to see pt this P.M. for OT session and upon arrival pt's nurse reported that pt has had a medical decline and is not appropriate for therapy at this time. Will check back at a later date and continue with POC as able. GUDELIA Peraza/Nimesh
[2019-07-18 14:23] LABS: BILIRUBIN NEGATIVE (NEGATIVE); BLOOD 2+ (NEGATIVE); COLOR YELLOW (YELLOW); GLUCOSE NEGATIVE (NEGATIVE); KETONE NEGATIVE (NEGATIVE); LEUKO ESTERASE TRACE (NEGATIVE); NITRITE NEGATIVE (NEGATIVE); SPECIFIC GRAVITY 1.015 (1.005-1.030); UROBILINOGEN 0.2 E.U./dl (0.2-1.0)
--- NOTE | 2019-07-18 14:37 | NUR ---
PHYSICAL THERAPY Patient had a central catheter for dialysis put in this AM and this afternoon SUSAN Love said that the patient may go to dialysis this afternoon. SUSAN Love also said that the patient should be allowed to rest and NOT have therapy this afternoon. Patient is on hold for therapy this afternoon. Patient has had medical decline. ROYAL MONAE PTA
[2019-07-18 14:49] LABS: BACTERIA TRACE; CLARITY SL CLOUDY (CLEAR)
[2019-07-18 14:53] LABS: URINE CREATININE RANDOM 32.6 mg/dL
[2019-07-18 16:00] VITALS: BP 140/88
[2019-07-18 18:57] LABS: VENOUS PH 7.345 (7.32-7.43)
[2019-07-18 20:00] VITALS: BP 125/74
--- NOTE | 2019-07-18 21:41 | NUR ---
SPOKE WITH PHARMACY REGARDING BICARB ORDER. STATES THEY WILL SEND IT UP.
[2019-07-19] VITALS: BP 121/78
[2019-07-19 06:47] LABS: BASO % 0.2 % (0.0-1.0); EOS # 0.2 10*3/uL (0.0-0.4); EOS % 1.9 % (1.0-4.0); HEMATOCRIT 35.2 % (37.0-47.0); HEMOGLOBIN 11.6 g/dl (12.0-16.0); LYMPH # 0.5 10*3/uL (1.3-4.4); LYMPH % 4.2 % (27.0-41.0); MEAN CELL VOLUME 90.5 fl (81.0-99.0); MEAN CORPUSCULAR HGB 29.8 pg (27.0-31.0); MEAN PLATELET VOLUME 11.8 fl (9.6-12.3); MONO # 0.8 10*3/uL (0.1-1.0); NEUT # 9.7 10*3/uL (2.3-7.9); NEUT % 86.2 % (47.0-73.0); PLATELET COUNT AUTOMATED 136 10*3/uL (130-400); RED BLOOD COUNT 3.89 10*6/uL (4.10-5.10); RED CELL DISTRI WIDTH 14.9 % (0-14.5); WHITE BLOOD COUNT 11.3 10*3/uL (4.8-10.8)
[2019-07-19 06:57] LABS: CREATININE 5.93 mg/dL (0.55-1.02); PHOSPHOROUS 4.6 mg/dL (2.5-4.9)
[2019-07-19 07:23] LABS: POTASSIUM 3.2 mmol/L (3.5-5.1)
--- NOTE | 2019-07-19 07:53 | NUR ---
PT TO DIALYSIS AT THIS TIME. REPORT GIVEN TO DIALYSIS NURSE.
--- NOTE | 2019-07-19 08:30 | NUR ---
OT NOTE Attempted to see pt this A.M. for OT session and upon arrival pt was out of the room for dialysis. Will check back at a later time/date and continue with POC as able. GUDELIA Peraza/Nimesh
--- NOTE | 2019-07-19 08:56 | NUR ---
PT GIVEN NORCO AT THIS TIME FOR C/O RIGHT GROIN PAIN/GENERALIZED PAIN. WILL MONITOR FOR EFFECTIVENESS. PT IN DIALYSIS AT THIS TIME. DIALYSIS NURSE WITH PATIENT. CALL LIGHT NI REACH.
--- NOTE | 2019-07-19 09:36 | NUR ---
PHYSICAL THERAPY Patient is in Dialysis at this time. Will check back later. ROYAL MONAE ROADWAY DESIGNER
[2019-07-19 10:04] LABS: HEPATITIS B SURFACE AG Negative (Negative); HEPATITIS C VIRUS ANTIBODY <0.1 s/co (0.0-0.9)
--- NOTE | 2019-07-19 11:54 | NUR ---
PT CAUGHT UP ON 1000 MEDS AFTER RETURNING FROM DIALYSIS. PT RESTING IN BED, RESPIRATIONS EASY AND UNLABORED. NO S/S OF DISTRESS NOTED. BP WNL. FAMILY VISITING WITH PT AT THIS TIME. CALL LIGHT IN REACH.
[2019-07-19 11:55] VITALS: BP 122/80
--- NOTE | 2019-07-19 11:59 | NUR ---
NOTIFIED PHARMACY THAT PT ZOSYN IS NOT ON FLOOR. PHARMACY STATES THAT WILL LOOK INTO AND SEND MEDICATION UP.
[2019-07-19 12:00] VITALS: BP 122/80
--- NOTE | 2019-07-19 14:28 | NUR ---
OT NOTE Attempted to see pt this P.M. for OT session and upon arrival pt had reports of increased fatigue due to dialysis and feeling nauseated. Will check back at a later time/date and continue with POC as able. GUDELIA Peraza/Nimesh
--- NOTE | 2019-07-19 15:18 | NUR ---
OCCUPATIONAL THERAPY CO-SIGN I approve of the Occupational Therapy notes written above. VINCE CRUMP OTR/Nimesh
--- NOTE | 2019-07-19 15:24 | NUR ---
PHYSICAL THERAPY CO-SIGN I approve of the Physical Therapy notes written above. Fidelina Lewis PT
[2019-07-19 16:00] VITALS: BP 122/75
--- NOTE | 2019-07-19 18:22 | NUR ---
PT GIVEN ZOFRAN AT THIS TIME FOR SYMPTOMS OF NAUSEA. WILL MONITOR FOR EFFECTIVENESS. PT SITTING UP IN BED. RESPIRATIONS UNLABORED. NO FURTHER S/S OF DISTRESS NOTED. IV FLUIDS INFUSING PER ORDERS INTO IV SITE IN RIGHT ARM. IV SITE IS PATENT. DRESSING C/D/I. WILL MONITOR. CALL LIGHT IN REACH.
[2019-07-19 20:00] VITALS: BP 134/78; BP 149/98
[2019-07-20] VITALS: BP 138/85
[2019-07-20 07:55] LABS: ALBUMIN 2.3 gm/dl (3.1-4.5); POTASSIUM 3.4 mmol/L (3.5-5.1); TOTAL PROTEIN 5.7 gm/dL (6.4-8.2)
[2019-07-20 08:00] VITALS: BP 130/90
[2019-07-20 08:09] LABS: BASO % 0.1 % (0.0-1.0); EOS # 0.3 10*3/uL (0.0-0.4); EOS % 2.1 % (1.0-4.0); HEMATOCRIT 37.9 % (37.0-47.0); HEMOGLOBIN 11.8 g/dl (12.0-16.0); LYMPH # 0.6 10*3/uL (1.3-4.4); MEAN CORPUSCULAR HGB 29.9 pg (27.0-31.0); MEAN CORPUSCULAR HGB CONC 31.1 g/dl (33.0-37.0); MEAN PLATELET VOLUME 11.8 fl (9.6-12.3); MONO % 8.7 % (3.0-9.0); NEUT # 9.8 10*3/uL (2.3-7.9); NEUT % 83.6 % (47.0-73.0); PLATELET COUNT AUTOMATED 128 10*3/uL (130-400); RED BLOOD COUNT 3.95 10*6/uL (4.10-5.10); RED CELL DISTRI WIDTH 15.1 % (0-14.5); WHITE BLOOD COUNT 11.7 10*3/uL (4.8-10.8)
[2019-07-20 08:23] LABS: MEAN CELL VOLUME 95.9 fl (81.0-99.0)
[2019-07-20 12:00] VITALS: BP 134/93
--- NOTE | 2019-07-20 12:19 | NUR ---
ID ANSWERING SERVICE NOTIFIED OF CONSULT
[2019-07-20 16:00] VITALS: BP 129/79
[2019-07-20 20:00] VITALS: BP 137/91
[2019-07-21] VITALS: BP 136/81
--- NOTE | 2019-07-21 06:10 | NUR ---
24 HR chart check completed.
[2019-07-21 06:38] LABS: BASO % 0.2 % (0.0-1.0); EOS # 0.3 10*3/uL (0.0-0.4); EOS % 2.3 % (1.0-4.0); HEMATOCRIT 38.2 % (37.0-47.0); HEMOGLOBIN 11.6 g/dl (12.0-16.0); LYMPH # 0.8 10*3/uL (1.3-4.4); LYMPH % 6.8 % (27.0-41.0); MEAN CELL VOLUME 96.5 fl (81.0-99.0); MEAN CORPUSCULAR HGB 29.3 pg (27.0-31.0); MEAN CORPUSCULAR HGB CONC 30.4 g/dl (33.0-37.0); MEAN PLATELET VOLUME 11.4 fl (9.6-12.3); MONO % 8.9 % (3.0-9.0); NEUT # 9.4 10*3/uL (2.3-7.9); NEUT % 81.3 % (47.0-73.0); PLATELET COUNT AUTOMATED 125 10*3/uL (130-400); RED BLOOD COUNT 3.96 10*6/uL (4.10-5.10); RED CELL DISTRI WIDTH 14.8 % (0-14.5); WHITE BLOOD COUNT 11.5 10*3/uL (4.8-10.8)
[2019-07-21 06:55] LABS: ALBUMIN 2.3 gm/dl (3.1-4.5); CREATININE 4.31 mg/dL (0.55-1.02); PHOSPHOROUS 3.8 mg/dL (2.5-4.9); POTASSIUM 4.3 mmol/L (3.5-5.1)
[2019-07-21 08:00] VITALS: BP 158/82; BP 165/105
[2019-07-21 12:00] VITALS: BP 154/90
[2019-07-21 16:00] VITALS: BP 133/86
[2019-07-21 20:00] VITALS: BP 164/88
--- NOTE | 2019-07-21 23:00 | NUR ---
ASSUMED CARE FOR THIS PT AT THIS TIME. PT RESTING QUIETLY IN BED. C/O RECTAL PAIN FROM FMS. REPOSITIONED FOR COMFORT. FMS DRAINING LIQUID DARK BROWN STOOL. CALL LIGHT IN REACH.
[2019-07-22] VITALS: BP 153/96
--- NOTE | 2019-07-22 04:50 | NUR ---
PT MEDICATED W/TYLENOL FOR C/O RECTAL PAIN. PT REPOSITIONED. CALL LIGHT IN REACH.
[2019-07-22 05:11] VITALS: BP 172/104
--- NOTE | 2019-07-22 05:13 | NUR ---
DR. NELSON NOTIFIED OF PT'S MANUAL BP OF 172/104 AND METOPROLOL 25MG GIVEN 1 HR EARLY. MONITOR PT AND RECHECK BP IN 1 HR.
--- NOTE | 2019-07-22 06:34 | NUR ---
24 HR chart check completed.
[2019-07-22 06:48] LABS: BASO % 0.2 % (0.0-1.0); EOS # 0.4 10*3/uL (0.0-0.4); EOS % 3.7 % (1.0-4.0); HEMOGLOBIN 11.8 g/dl (12.0-16.0); LYMPH # 0.7 10*3/uL (1.3-4.4); LYMPH % 6.6 % (27.0-41.0); MEAN CORPUSCULAR HGB 29.6 pg (27.0-31.0); MEAN CORPUSCULAR HGB CONC 30.3 g/dl (33.0-37.0); MEAN PLATELET VOLUME 11.8 fl (9.6-12.3); MONO # 0.9 10*3/uL (0.1-1.0); MONO % 8.4 % (3.0-9.0); NEUT # 8.4 10*3/uL (2.3-7.9); NEUT % 80.4 % (47.0-73.0); PLATELET COUNT AUTOMATED 134 10*3/uL (130-400); RED BLOOD COUNT 3.98 10*6/uL (4.10-5.10); RED CELL DISTRI WIDTH 14.7 % (0-14.5); WHITE BLOOD COUNT 10.4 10*3/uL (4.8-10.8)
[2019-07-22 07:03] LABS: ALBUMIN 2.4 gm/dl (3.1-4.5); CREATININE 4.93 mg/dL (0.55-1.02); TOTAL PROTEIN 6.2 gm/dL (6.4-8.2)
--- NOTE | 2019-07-22 07:30 | NUR ---
VS STABLE. SKIN WARM AND DRY, EXCORIATED AROUND RECTUM, ECCHYMOSIS AROUND NECK AND ON RIGHT HAND. MAYTE, A&O x3. PT STATES "I HAVE DISCOMFORT AROUND MY RECTUM, BUT NOT ANYTHING I NEED MEDICINE FOR." HEART SOUNDS ARE NORMAL, RATE OF 70, IRREGULAR AND WEAK. LUNGS SOUNDS CLEAR THROUGHOUT, RATE OF 16, PO2 99% ON ROOM AIR. BOWEL SOUNDS x4, ABDOMEN SOFT, NON-DISTENDED, NON-TENDER.IV SITE RIGHT ARM DRY AND INTACT, NO S/S OF INFECTION. RIGHT FEMORAL DIALYSIS PORT DRY AND INTACT, NO S/S OF INFECTION. PACHECO CATHETER PATENT FOR LIGHT YELLOW URINE. RECTAL TUBE PATENT FOR LIQUID BROWN STOOL. NO OTHER COMPLAINTS AT THIS TIME, WILL CONTINUE TO MONITOR. EH MAK ARANZA
[2019-07-22 08:00] VITALS: BP 152/88
--- NOTE | 2019-07-22 08:00 | NUR ---
OT NOTE Pt was seen this A.M. 1:1 for 15 minute OT session. Upon arrival pt was supine in bed. Pt identified by name and and had no complaints at this time. Pt transferred supine to sit EOB with modA X 2. Pt completed sit to stand from bed level with modA X 2 and use of w/w for UE support. Challenged pt's static standing tolerance needed for increased I in self care tasks and functional transfers, pt was able to tolerate aprox 30 seconds at a time before sitting due to fatigue and complaints of being dizzy and nauseated. Pt tolerated aprox 6 minutes of sitting EOB before requesting to lay back down due to nausea. Pt transferred sit to supine with modA X 2. There she was left with call light in hand, tray table in place, and bed alarm activated for safety. Continue with rec D/C plan to SNF. GUDELIA Peraza/Nimesh
--- NOTE | 2019-07-22 08:18 | NUR ---
PHYSICAL THERAPY TREATMENT TIME: 07:50 AM - 08:05 PM 15 MINUTES Patient presented to therapy in supine with head of bed elevated and report of feeling better with no nausea. Patient has a rectal catheter and urinary catheter. Patient gives informed consent for treatment. Patient gives informed consent for treatment. Patient performed supine to sitting at EOB transfer with MOD A X 2. Patient sat on EOB with CGA X 1 to SBA. Patient transferred sit to stand with MOD A X 2 with VERBAL CUES for pushing off the bed with hands. Patient stood X 2 FOR 30 SECONDS EACH TIME with CGA X 2 with complaining of dizziness and the nausea. Patient required verbal cues for pushing dowm on handles of walker with hands. Patient requested transfer back to supine in bed with MAX A X 2 due to increased nausea and dizziness. Patient was moved up to head of bed with sheet transfer with MAX A X 2. Patient was left in supine in bed with head of bed elevated, call light within reach and bed alarm actiavted. Patient was 1:1 with this SCREEN CUTTER AND TRIMMER for 15 minutes total. ROYAL MONAE SCREEN CUTTER AND TRIMMER
--- NOTE | 2019-07-22 08:20 | NUR ---
PT TO DIALYSIS VIA CART. CONDITION STABLE. EH MAK SPNRCC
[2019-07-22 12:00] VITALS: BP 146/48
--- NOTE | 2019-07-22 12:56 | NUR ---
PT RETURNED FROM DIALYSIS VIA CART. CONDITION STABLE. WILL CONTINUE TO MONITOR. EH MAK ARANZA
--- NOTE | 2019-07-22 13:36 | NUR ---
PT RETURNED FROM DIALYSIS VIA CART. CONDITION STABLE. WILL CONTINUE TO MONITOR. EH MAK ARANZA
[2019-07-22 16:00] VITALS: BP 145/86
--- NOTE | 2019-07-22 19:18 | NUR ---
PER THE REMOVAL OF THE DIALYSIS CATHETER WILL BE ADDRESSED TOMORROW 07/23/19 OK TO REMOVED FMS AT THIS TIME
--- NOTE | 2019-07-22 19:36 | NUR ---
24 HR chart check completed.
[2019-07-22 20:00] VITALS: BP 130/89
[2019-07-23] VITALS: BP 152/86; BP 162/100
--- NOTE | 2019-07-23 06:13 | NUR ---
TYLENOL ADMINISTERED FOR C/O BUTTOCKS PAIN. WILL MONITOR FOR EFFECTIVENESS.
--- NOTE | 2019-07-23 06:25 | NUR ---
RECTAL TUBE REMOVED PER ORDER. PT BUTTOCKS RED AND EXCORIATED, CALAZIME CREAM APPLIED TO AFFECTED AREAS PRESCRIBED.
[2019-07-23 07:41] LABS: CREATININE 3.72 mg/dL (0.55-1.02); POTASSIUM 4.1 mmol/L (3.5-5.1)
--- NOTE | 2019-07-23 07:47 | NUR ---
INCIDENT ANALYST faxed updates to [place] -TIMOTHY Vyas
[2019-07-23 08:00] VITALS: BP 174/98
--- NOTE | 2019-07-23 10:32 | NUR ---
PER DR. XIONG, PATIENT NEEDS DIALYSIS CATHETER TO RIGHT FEMORAL REMOVED LISETH. PHONED DR. AMIN, WHO ADVISED THAT INTERVENT[facility] RADIOLOGY SHOULD BY CONTACTED FOR THIS PROCEDURE. SENT MESSAGE TO [facility].
[2019-07-23 12:00] VITALS: BP 122/78
--- NOTE | 2019-07-23 12:11 | NUR ---
PHYSICAL THERAPY Pt seen 1:1 for physical therapy x 24 minutes with SPOOL SANDER, pt in room, finishing up breakfast, feeling better than she has in a while, in bed, head elevated. Pt willing to give it a try today, worked on bed mobility, with Min A to help sit at edge of bed, sat there for a few, attempted standing with Mod A x 1 at walker, direction for safety, able to stand for 25 sec x 2, c/o fatigue, no nausea, cues to help sit upright in bed, required Min A to get back in bed, with call light and bed side table there in reach, stated feeling tired, but did like the little progress made today. Nikita Flores, SPOOL SANDER
--- NOTE | 2019-07-23 14:21 | NUR ---
DR. GODOY IN TO REMOVE DIALYSIS CATHETER.
--- NOTE | 2019-07-23 14:24 | NUR ---
OT NOTE Attempted to see pt this P.M. for OT session and upon arrival pt was under doctor care for removal of her dialysis catheter. Will check back at a later time/date and continue with POC as able. GUDELIA Peraza/Nimesh
--- NOTE | 2019-07-23 14:50 | NUR ---
ADMINISTERED PO LOPRESSOR SCHEDULED, UNABLE TO SCAN D/T LOSSES IN INTERNET CONNECTION.
[2019-07-23 16:00] VITALS: BP 140/84
[2019-07-23 20:00] VITALS: BP 148/80
--- NOTE | 2019-07-23 22:38 | NUR ---
IV started right hand with #22 angiocath after 1 attempts. The IV site was prepped with Chloraprep. Heparin lock attached. Sterile dressing applied. Patient tolerated precedure well. Procedure performed according to [facility] policy & procedure. NIKKI HERMAN
[2019-07-23 23:12] VITALS: BP 182/120
--- NOTE | 2019-07-23 23:12 | NUR ---
DR. SAMS CONTACTED AT THIS TIME IN REGARDS TO BLOOD PRESSURE OF 182/120. 5MG IV LOPRESSOR ORDERED.
[2019-07-24 00:03] VITALS: BP 166/110
--- NOTE | 2019-07-24 00:03 | NUR ---
DR. SAMS CONTACTED REGARDING UPDATE ON BP NOW 166/110. SEE NEW ORDERS.
[2019-07-24 07:04] LABS: BASO % 0.3 % (0.0-1.0); EOS # 0.4 10*3/uL (0.0-0.4); EOS % 3.6 % (1.0-4.0); HEMATOCRIT 35.5 % (37.0-47.0); HEMOGLOBIN 10.7 g/dl (12.0-16.0); LYMPH # 0.9 10*3/uL (1.3-4.4); LYMPH % 8.8 % (27.0-41.0); MEAN CELL VOLUME 98.6 fl (81.0-99.0); MEAN CORPUSCULAR HGB 29.7 pg (27.0-31.0); MEAN CORPUSCULAR HGB CONC 30.1 g/dl (33.0-37.0); MEAN PLATELET VOLUME 11.4 fl (9.6-12.3); MONO % 9.2 % (3.0-9.0); NEUT % 77.5 % (47.0-73.0); PLATELET COUNT AUTOMATED 127 10*3/uL (130-400); WHITE BLOOD COUNT 10.4 10*3/uL (4.8-10.8)
[2019-07-24 07:33] LABS: POTASSIUM 3.9 mmol/L (3.5-5.1)
[2019-07-24 07:40] LABS: CREATININE 4.44 mg/dL (0.55-1.02)
--- NOTE | 2019-07-24 07:57 | NUR ---
VS STABLE. A&Ox3, MAYTE, + PERIPHERAL PULSES. CAPILLARY REFILL <3 SECONDS, SKIN TURGOR NON TENTING. SKIN IS WARM AND DRY, WITH EXCORIATION AROUND RECTUM AND ECCHYMOSIS AROUND NECK. PT IS PLEASANT AND COOPERATIVE, NO COMPLAINTS OF PAIN AT THIS TIME. HEART SOUNDS ARE NORMAL, RATE OF 70, STRONG. LUNG SOUNDS ARE CLEAR THROUGHOUT, PO2 100% ON ROOM AIR. BOWEL SOUNDS x4, ABDOMEN SOFT, NON DISTENDED AND NON TENDER. RIGHT HAND IV SITE IS DRY AND INTACT, NO S/S OF INFECTION. RIGHT FEMORAL BANDAGE DRY AND INTACT WITH MINIMAL DRAINAGE. PACHECO CATHETER PATENT FOR LIGHT YELLOW URINE. NO OTHER COMPLAINTS AT THIS TIME, WILL CONTINUE TO MONITOR. EH MAK [facility]
[2019-07-24 08:00] VITALS: BP 152/98
--- NOTE | 2019-07-24 09:54 | NUR ---
PT RESTING COMFORTABLY WITH EYES CLOSED. WILL CONTINUE TO MONITOR. [facility]
--- NOTE | 2019-07-24 10:33 | NUR ---
OT NOTE Pt was seen this A.M. 1:1 for 30 minute OT session. Upon arrival pt was supine in bed. Pt identified by name and and had no complaints at this time. Pt transferred supine to sit EOB with Bin for assist with UB. Educated pt on use of bed rails for increased I and improved technique, pt presented with fair carry over. While sitting EOB pt completed BUE towel exercises over all planes of motion for 1 X 10 to increase and restore UE strength needed for increased I in self care tasks and functional transfers. Pt then completed multiple sit to stand transfers from bed level with modA and use of w/w for UE support. Pt required verbal prompts for proper hand placement for increased I. Challenged pt's static standing tolerance needed for increased I in self care tasks and functional transfers, pt was able to tolerate aprox 2 minutes at a time before sitting due to fatigue. Attempted to completed standing pivot from the EOB to the recliner with Bin and use of w/w and pt was unable to increased fear of falling. Pt then transferred back into bed sit to supine with Bin and was repositioned with maxA X 2. Pt tolerated a total of aprox 20 minutes sitting upright with no complaints of dizziness or nausea. Pt was left supine in bed with call light in hand, tray table in place, and bed alarm activated for safety. Continue with rec D/C plan to SNF. KAMERON Peraza
[2019-07-24 12:00] VITALS: BP 158/98
--- NOTE | 2019-07-24 13:36 | NUR ---
PHYSICAL THERAPY 1:1 Time: 25 Pain on a scale of 0-10 > Prior to treatment: 0/10 Post treatment: 0/10 Progress note: Pt resting in bed upon arrival stating that she does not want to be bothered. Pt than stated that she would attempt therapy today because she [facility] to [facility] ([facility] Began therapy session with bedside therex and seated therex this date. Pt very anxious while sitting on the edge of the bed. She stated that she had a fear of falling. We attempted to stand 3 attempts in which she was able to stand for approximately 5 seconds prior to wanting to sit back down. Patient has a fear of falling and required min to max assistance to stand x1. Pt is indepented of transfering from supine to sitting, with use of the handrail, however did require assistance to get back in bed. Pt bed alarm set and the call button was within her reach as well as her tray table. LINH VALERIO MACHINE STONE POLISHER APPRENTICE
--- NOTE | 2019-07-24 17:45 | NUR ---
ADMINISTERED IV LOPRESSOR FOR BP 159/114, ALSO STARTED DAILY NORVASC AT THIS TIME, WILL BE SCHEDULED FOR 10AM DAILY FROM THIS TIME ON.
[2019-07-24 20:00] VITALS: BP 153/91
[2019-07-25] VITALS: BP 158/105
[2019-07-25 06:38] LABS: HEMATOCRIT 34.4 % (37.0-47.0); HEMOGLOBIN 10.6 g/dl (12.0-16.0); MEAN CELL VOLUME 97.5 fl (81.0-99.0); MEAN CORPUSCULAR HGB CONC 30.8 g/dl (33.0-37.0); MEAN PLATELET VOLUME 11.3 fl (9.6-12.3); PLATELET COUNT AUTOMATED 128 10*3/uL (130-400); RED BLOOD COUNT 3.53 10*6/uL (4.10-5.10); RED CELL DISTRI WIDTH 14.9 % (0-14.5); WHITE BLOOD COUNT 12.6 10*3/uL (4.8-10.8)
[2019-07-25 06:51] LABS: CREATININE 4.92 mg/dL (0.55-1.02); POTASSIUM 3.7 mmol/L (3.5-5.1)
[2019-07-25 07:10] LABS: OVALOCYTES FEW; PLATELET SUFFICIENCY LOW (NORMAL); TOTAL CELLS COUNTED 100 #CELLS
--- NOTE | 2019-07-25 08:28 | NUR ---
Patient is LTC at [facility]. ENVELOPE CUTTER faxed updates to [facility] -TIMOTHY Vyas
[2019-07-25 12:00] VITALS: BP 170/86
[2019-07-25] MEDS ORDERED: AMLODIPINE BESYL5 MG PO (12:02)
--- NOTE | 2019-07-25 12:21 | NUR ---
MARKETING DATABASE CONSULTANT spoke with SUSAN [facility]. MARKETING DATABASE CONSULTANT spoke with [facility]. They are able to transport within 10-15mins. SUSAN Hills stated this was okay. MARKETING DATABASE CONSULTANT spoke with Daphnie Adams, she is aware of discharge/transport. MARKETING DATABASE CONSULTANT also notified [place]. MARKETING DATABASE CONSULTANT will fax discharge when available. -TIMOTHY Vyas
--- NOTE | 2019-07-25 13:23 | NUR ---
Discharge instructions reviewed with patient. Patient receptive and verbalizes understanding. Follow-up care arranged. Written instructions given to SUPERVISOR HEADING, NURSE TO NURSE CALLED TO [facility], IV REMOVED. LEFT VIS [facility]. DINESH ADAM
--- NOTE | 2019-07-26 07:36 | NUR ---
PHYSICAL THERAPY CO-SIGN I approve of the Physical Therapy notes written above. Fidelina Lewis PT
--- NOTE | 2019-07-26 07:53 | NUR ---
OCCUPATIONAL THERAPY CO-SIGN I approve of the Occupational Therapy notes written above. AUDREY WEIR, OTR/L
== END 2019-07-25 13:23 | DRG 871 ==
LOC: ED 17:05 → 5E 19:53 → EDHOLD 19:53 → 4E 20:37 → 5E 21:00
PROVIDERS: Emergency Medicine; Family Medicine; Internal Medicine; Internal Medicine Nephrology; Student in an Organized Health Care Education/Training Program; ADMIT Family Medicine
DX: A41.9 Sepsis, unspecified organism (principal); N17.0 Acute kidney failure with tubular necrosis; J96.01 Acute respiratory failure with hypoxia; N39.0 Urinary tract infection, site not specified; D68.69 Other thrombophilia; E44.0 Moderate protein-calorie malnutrition; E87.2 Acidosis; E86.0 Dehydration; Z66 Do not resuscitate; Z51.5 Encounter for palliative care; T68.XXXA Hypothermia, initial encounter; D72.810 Lymphocytopenia; E87.5 Hyperkalemia; E87.8 Other disorders of electrolyte and fluid balance, not elsewhere classified; E11.649 Type 2 diabetes mellitus with hypoglycemia without coma; I10 Essential (primary) hypertension; E78.5 Hyperlipidemia, unspecified; M06.9 Rheumatoid arthritis, unspecified; I48.0 Paroxysmal atrial fibrillation; I51.7 Cardiomegaly; G89.4 Chronic pain syndrome; I48.91 Unspecified atrial fibrillation; D53.9 Nutritional anemia, unspecified; K52.9 Noninfective gastroenteritis and colitis, unspecified; R65.20 Severe sepsis without septic shock; N20.0 Calculus of kidney; B95.2 Enterococcus as the cause of diseases classified elsewhere; T50.915A Adverse effect of multiple unspecified drugs, medicaments and biological substances, initial encounter; Z53.8 Procedure and treatment not carried out for other reasons; Z86.73 Personal history of transient ischemic attack (TIA), and cerebral infarction without residual deficits; Z82.49 Family history of ischemic heart disease and other diseases of the circulatory system; Z87.891 Personal history of nicotine dependence; Z79.899 Other long term (current) drug therapy; Y92.89 Other specified places as the place of occurrence of the external cause